=== PATIENT | female | born 2000 | race Caucasian/White ===

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

== ENCOUNTER 2021-01-02 09:08 | Emergency (ER) | payer MEDICAID, OTHER ==
[2021-01-02] MEDS ORDERED: Augmentin 875-125 Tablet PO ONE (09:20)
[2021-01-02] MEDS ORDERED: DECADRON 10MG INJ. IM ONE (09:20)
[2021-01-02] MEDS ORDERED: Augmentin 875-125 Tablet ONE (09:24)
[2021-01-02] MEDS ORDERED: DECADRON 10MG INJ. ONE (09:24)
--- NOTE | 2021-01-02 09:26 | ERPHSYRPT ---
- History of Present Illness Time Seen by Provider: 01/02/21 09:10 Source: patient Exam Limitations: no limitations Patient Subjective Stated Complaint: PT states "I think I have strep, my throat started to hurt last night and now it si swollen with white spots on it." Triage Nursing Assessment: Pt presented alert and oriented X 3, skin pwd Pt ambulates with an upright steady gait, able to speak in clear full sentences pt in no apparent respiratory distress. Pt throat swollen and white. Physician History: 40 years old female presented in the ER with chief complaint of sore throat worsening since last night and this morning noticed white patches with diffuse swelling of both tonsils and uvula making it difficult to swallow solids but no difficulty swallowing liquids. Denies fever chills cough or shortness of b reath. Does have history of tonsillitis in the past. Complaining of dull aching moderate intensity pain which is more with swallowing. Timing/Duration: gradual onset, yesterday Severity: moderate ENT Location: throat Prearrival Treatment: no prearrival treatment Associated Symptoms: poor solids intake, sore throat, difficulty swallowing, No fever, No facial pain/swelling Allergies/Adverse Reactions: No Known Drug Allergies Allergy (Verified 01/02/21 09:16) Hx Tetanus, Diphtheria Vaccination/Date Given: No Hx Influenza Vaccination/Date Given: No Hx Pneumococcal Vaccination/Date Given: No Immunizations Up to Date: Yes Travel Risk - International Travel Have you traveled outside of the country in past 3 weeks: No - Coronavirus Screening Are you exhibiting any of the following symptoms?: No Close contact with a COVID-19 positive Pt in past 14-21 Days: No - Vaccine Status Have you recieved a Covid-19 vaccination: No - Review of Systems Constitutional: No Symptoms Eyes: No Symptoms Ears, Nose, & Throat: Throat Pain, Throat Swelling, Painful Swallowing Respiratory: No Symptoms Cardiac: No Symptoms Abdominal/Gastrointestinal: No Symptoms Genitourinary Symptoms: No Symptoms Musculoskeletal: No Symptoms Skin: No Symptoms Neurological: No Symptoms Psychological: No Symptoms Endocrine: No Symptoms Hematologic/Lymphatic: No Symptoms Immunological/Allergic: No Symptoms - Past Medical History Pertinent Past Medical History: No - Past Surgical History Past Surgical History: No - Social History Smoking Status: Never smoker How long have you smoked: 1 year Exposure to second hand smoke: Yes Drug Use: none Patient Lives Alone: No - Female History Hx Last Menstrual Period: 12/17/2020 Hx Now: No - Nursing Vital Signs Nursing Vital Signs: Initial Vital Signs Temperature 97.2 F 01/02/21 09:11 Pulse Rate 112 H 01/02/21 09:11 Respiratory Rate 20 01/02/21 09:11 Blood Pressure 141/88 01/02/21 09:11 O2 Sat by Pulse Oximetry 97 01/02/21 09:11 Pain Scale Pain Intensity 6 - Physical Exam General Appearance: no apparent distress Eye Exam: bilateral eye: normal inspection, PERRL, EOMI Ear Exam: bilateral ear: auricle normal, canal normal, TM normal Nasal Exam: normal inspection Throat Exam: tonsillar exudate, tonsillar swelling, uvula swelling, No tongue swollen Neck Exam: normal inspection, non-tender, full range of motion, lymphadenopathy (R), lymphadenopathy (L) Cardiovascular/Respiratory Exam: normal breath sounds, regular rate/rhythm Abdominal Exam: non-tender, soft, no organomegaly Neurologic Exam: alert, oriented x 3, cooperative, costume mistress II-XII nml as tested Skin Exam: normal color SpO2 Interpretation: normal SpO2: 97 O2 Delivery: Room Air Ordered Tests: Medication Summary Discontinued Medications Generic Name Dose Route Start Last Admin Trade Name Radamesq PRN Reason Stop Dose Admin Amoxicillin/Clavulanate Potassium 875 mg 01/02/21 09:20 01/02/21 09:26 Augmentin 875-125 Tablet PO 01/02/21 09:21 875 mg STAT ONE Administration Amoxicillin/Clavulanate Potassium Confirm 01/02/21 09:24 Augmentin 875-125 Tablet Administered 01/02/21 09:25 Dose 875 mg .ROUTE .STK-MED ONE Dexamethasone Sodium Phosphate 10 mg 01/02/21 09:20 01/02/21 09:26 Decadron 10mg Inj. IM 01/02/21 09:21 10 mg STAT ONE Administration Dexamethasone Sodium Phosphate Confirm 01/02/21 09:24 Decadron 10mg Inj. Administered 01/02/21 09:25 Dose 10 mg .ROUTE .STK-MED ONE Lab/Rad Data: Laboratory Results 01/02/21 Range/Units 09:25 Group A Strep Antibody DETECTED (NEGATIVE) - Progress Progress Note: Patient has bilateral enlarged tonsils with swelling of the uvula. She is given a dose of Decadron along with Augmentin. Strep throat is obtained. Recommended outpatient follow-up. Counseled pt/family regarding: lab results, diagnosis, need for follow-up - Departure Departure Disposition: Home Clinical Impression: Acute pharyngitis Qualifiers: Pharyngitis/tonsillitis etiology: streptococcus Qualified Code(s): J02.0 - Streptococcal pharyngitis Condition: Stable Critical Care Time: No Referrals: ALPHONSE COTTER MD [ACTIVE STAFF] - (1-2 days for reevaluation) Instructions: Strep Throat (DC) Additional Instructions: Do warm salt water gargles. Take Tylenol/ibuprofen as needed for pain. Follow- up with primary care for reevaluation and may need ENT referral for possible removal of tonsils. Return to ER for difficulty breathing, persistent lorrie n/increasing swelling/fever chills etc. Prescriptions: Amoxicillin/Potassium Clav [Augmentin 875-125 Tablet] 875 mg PO BID 10 Days #20 tablet
[2021-01-02 10:06] VITALS: BP 134/80; PULSE 110; O2SAT 98
== END 2021-01-02 10:11 | disposition home or self-care (01) ==
LOC: ED 09:08
DX: J02.0 Streptococcal pharyngitis (principal)
CPT/HCPCS: 87651; 96372; 99284; J1100; A9270-GY

== ENCOUNTER 2021-02-20 07:39 | Emergency (ER) | payer MEDICAID ==
[2021-02-20] MEDS ORDERED: TORAdol 30 mg Injection IM ONE (08:14)
[2021-02-20] MEDS ORDERED: Sodium Chloride 0.9% 1000 ML 1,000 ML IV STA (08:17)
[2021-02-20] MEDS ORDERED: TORAdol 30 mg Injection ONE (08:20)
[2021-02-20] MEDS ORDERED: Sodium Chloride 0.9% 1000 ML 1,000 ML ONE (08:20)
[2021-02-20 08:24] LABS: Hematocrit 33.3 % (35-47); Hemoglobin 9.8 gm/dl (12.0-16.0); Mean Corpuscular Hemoglobin 21.5 pg (26-32); Mean Corpuscular Hgb Concent. 29.4 g/dl (32-36); Mean Platelet Volume 10.7 fl (7.5-11.0); Platelet Count 302 K/mm3 (150-450); Red Blood Count 4.56 M/mm3 (4.1-5.4); Red Cell Distribution Width 18.7 % (11.5-14.0)
[2021-02-20 08:33] LABS: Appearance CLOUDY (CLEAR); Bilirubin NEGATIVE (NEGATIVE); Blood NEGATIVE Ery/ul (0-5); Epithelial Cells PACKED /HPF (FEW); Glucose NEGATIVE (NEGATIVE); Ketones NEGATIVE (NEGATIVE); Leukocyte Esterase NEGATIVE (NEGATIVE); Mucus SLIGHT /HPF (NEGATIVE); Nitrite NEGATIVE (NEGATIVE); Protein,Urine Dip 30 (Negative); RBC 0-2 /HPF (0-2); Specific Gravity 1.024 (1.005-1.025); Urobilinogen NEGATIVE mg/dL (0-1)
[2021-02-20 08:34] LABS: Bacteria NONE SEEN /HPF (NEGATIVE)
--- NOTE | 2021-02-20 08:37 | ERPHSYRPT ---
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 Recent Rapid test for COVID 1 week ago. Although she has some Positive contact Timing/Duration: yesterday Severity: moderate Associated Symptoms: nausea, vomiting, abdominal pain, cough, headaches Allergies/Adverse Reactions: No Known Drug Allergies Allergy (Verified 02/20/21 07:57) Hx Tetanus, Diphtheria Vaccination/Date Given: No Hx Influenza Vaccination/Date Given: No Hx Pneumococcal Vaccination/Date Given: No Travel Risk - International Travel Have you traveled outside of the country in past 3 weeks: No - Coronavirus Screening Are you exhibiting any of the following symptoms?: Yes Symptoms: Cough: New Onset, Vomiting/Diarrhea, Headaches/Body Aches/Fatigue - Vaccine Status Have you recieved a Covid-19 vaccination: No - Review of Systems Constitutional: Malaise, No Fever, No Chills Eyes: No Symptoms Ears, Nose, & Throat: No Symptoms Respiratory: Cough, No Dyspnea Cardiac: No Chest Pain, No Edema, No Syncope Abdominal/Gastrointestinal: Nausea, Vomiting, No Abdominal Pain, No Diarrhea Genitourinary Symptoms: No Dysuria Musculoskeletal: No Back Pain, No Neck Pain Skin: No Rash Neurological: Headache, No Dizziness, No Focal Weakness, No Sensory Changes Psychological: No Symptoms Endocrine: No Symptoms All Other Systems: Reviewed and Negative - Past Medical History Pertinent Past Medical History: No - Past Surgical History Past Surgical History: No - Social History Smoking Status: Never smoker How long have you smoked: 1 year Exposure to second hand smoke: Yes Drug Use: none Patient Lives Alone: No - Female History Hx Last Menstrual Period: 01/21/2021 Hx Now: No - Nursing Vital Signs Nursing Vital Signs: Initial Vital Signs Temperature 97.9 F 02/20/21 07:45 Pulse Rate 119 H 02/20/21 07:45 Blood Pressure 119/85 02/20/21 07:45 O2 Sat by Pulse Oximetry 97 02/20/21 07:45 Pain Scale Pain Intensity 10 - Physical Exam General Appearance: no apparent distress, alert Eye Exam: PERRL/EOMI, eyes nml inspection Ears, Nose, Throat Exam: normal ENT inspection, TMs normal, pharynx normal, moist mucous membranes Neck Exam: normal inspection, non-tender, supple, full range of motion Respiratory Exam: normal breath sounds, lungs clear, No respiratory distress Cardiovascular Exam: regular rate/rhythm, normal heart sounds, normal peripheral pulses Gastrointestinal/Abdomen Exam: soft, normal bowel sounds, No tenderness, No mass Back Exam: normal inspection, normal range of motion, No CVA tenderness, No becky tebral tenderness Extremity Exam: normal inspection, normal range of motion, pelvis stable Neurologic Exam: alert, oriented x 3, cooperative, normal mood/affect, nml cerebellar function, nml station & gait, sensation nml, No motor deficits Skin Exam: normal color, warm, dry, No rash Lymphatic Exam: No adenopathy SpO2: 97 - Course Nursing assessment & vital signs reviewed: Yes - Radiology Exams Chest X-ray Interpretation: Reviewed by me, Negative Ordered Tests: Active Orders 24 hr Category Date Time Status Isolation, Initiate & Maintain STAT Care 02/20/21 08:12 Active CHEST 2 VIEWS (PA AND LAT) Stat Exams 02/20/21 08:13 Taken CBC Stat Lab 02/20/21 08:10 Completed CMP Stat Lab 02/20/21 08:10 Completed CULTURE,URINE Stat Lab 02/20/21 08:17 Received D-DIMER QUANTITATIVE Stat Lab 02/20/21 08:10 Completed HCG,QUALITATIVE URINE Stat Lab 02/20/21 08:38 Completed UA W/RFX UR CULTURE Stat Lab 02/20/21 08:17 Completed Medication Summary Generic Name Dose Route Start Last Admin Trade Name Freq PRN Reason Stop Dose Admin Ceftriaxone Sodium/Dextrose 1 g in 50 mls @ 100 mls/hr 02/20/21 09:15 02/20/21 09:34 Rocephin 1 Gm-D5w 50 Ml Bag IV 02/20/21 09:44 Infused STAT STA Infusion Discontinued Medications Generic Name Dose Route Start Last Admin Trade Name [place] PRN Reason Stop Dose Admin Sodium Chloride 1,000 mls @ 999 mls/hr 02/20/21 08:17 02/20/21 09:33 Sodium Chloride 0.9% 1000 Ml IV 02/20/21 09:17 Infused .Q1H1M STA Infusion Sodium Chloride Confirm 02/20/21 08:20 Sodium Chloride 0.9% 1000 Ml Administered 02/20/21 08:21 Dose 1,000 mls @ ud .ROUTE .STK-MED ONE Ceftriaxone Sodium/Dextrose Confirm 02/20/21 09:16 Rocephin 1 Gm-D5w 50 Ml Bag Administered 02/20/21 09:17 Dose 1 g in 50 mls @ ud IV .STK-MED ONE Ketorolac Tromethamine 60 mg 02/20/21 08:14 02/20/21 08:23 Toradol 30 Mg Injection IM 02/20/21 08:15 30 mg STAT ONE Administration Ketorolac Tromethamine Confirm 02/20/21 08:20 Toradol 30 Mg Injection Administered 02/20/21 08:21 Dose 30 mg .ROUTE .STK-MED ONE Lab/Rad Data: Laboratory Result Diagrams 02/20/21 08:10 02/20/21 08:10 Laboratory Results 02/20/21 02/20/21 02/20/21 Range/Units 08:38 08:17 08:10 WBC (4.0-10.5) K/mm3 RBC (4.1-5.4) M/mm3 Hgb (12.0-16.0) gm/dl Hct (35-47) % MCV (78-100) fl MCH (26-32) pg MCHC (32-36) g/dl RDW (11.5-14.0) % Plt Count (150-450) K/mm3 MPV (7.5-11.0) fl D-Dimer 721 H* (215-500) ng/mL Sodium (137-145) mmol/L Potassium (3.5-5.1) mmol/L Chloride (98-107) mmol/L Carbon Dioxide (22-30) mmol/L Anion Gap (5-15) MEQ/L BUN (7-17) mg/dL Creatinine (0.52-1.04) mg/dL Estimated GFR ML/MIN Glucose (74-106) mg/dL Calcium (8.4-10.2) mg/dL Total Bilirubin (0.2-1.3) mg/dL AST (14-36) U/L ALT (0-35) U/L Alkaline Phosphatase (38-126) U/L Serum Total Protein (6.3-8.2) g/dL Albumin (3.5-5.0) g/dL Urine Color SABINE (YELLOW) Urine Appearance CLOUDY (CLEAR) Urine pH 5.0 (5-6) Ur Specific [place] 1.024 (1.005-1.025) Urine Protein 30 (Negative) Urine Ketones NEGATIVE (NEGATIVE) Urine Blood NEGATIVE (0-5) Hussein/ul Urine Nitrite NEGATIVE (NEGATIVE) Urine Bilirubin NEGATIVE (NEGATIVE) Urine Urobilinogen NEGATIVE (0-1) mg/dL Ur Leukocyte Esterase NEGATIVE (NEGATIVE) Urine WBC (Auto) 6-10 (0-5) /HPF Urine RBC (Auto) 0-2 (0-2) /HPF U Epithel Cells (Auto) PACKED (FEW) /HPF Urine Bacteria (Auto) NONE SEEN (NEGATIVE) /HPF Urine Mucus (Auto) SLIGHT (NEGATIVE) /HPF Urine Culture Reflexed YES (NO) Urine Glucose NEGATIVE (NEGATIVE) mg/dL Urine HCG, Qual NEGATIVE (Negative) 02/20/21 02/20/21 Range/Units 08:10 08:10 WBC 4.0 (4.0-10.5) K/mm3 RBC 4.56 (4.1-5.4) M/mm3 Hgb 9.8 L (12.0-16.0) gm/dl Hct 33.3 L (35-47) % MCV 73.0 L (78-100) fl MCH 21.5 L (26-32) pg MCHC 29.4 L (32-36) g/dl RDW 18.7 H (11.5-14.0) % Plt Count 302 (150-450) K/mm3 MPV 10.7 (7.5-11.0) fl D-Dimer (215-500) ng/mL Sodium 138 (137-145) mmol/L Potassium 3.9 (3.5-5.1) mmol/L Chloride 104 (98-107) mmol/L Carbon Dioxide 25 (22-30) mmol/L Anion Gap 13.6 (5-15) MEQ/L BUN 9 (7-17) mg/dL Creatinine 0.83 (0.52-1.04) mg/dL Estimated GFR > 60.0 ML/MIN Glucose 111 H (74-106) mg/dL Calcium 8.8 (8.4-10.2) mg/dL Total Bilirubin 0.20 (0.2-1.3) mg/dL AST 27 (14-36) U/L ALT 23 (0-35) U/L Alkaline Phosphatase 53 (38-126) U/L Serum Total Protein 7.4 (6.3-8.2) g/dL Albumin 4.0 (3.5-5.0) g/dL Urine Color (YELLOW) Urine Appearance (CLEAR) Urine pH (5-6) Ur Specific [place] (1.005-1.025) Urine Protein (Negative) Urine Ketones (NEGATIVE) Urine Blood (0-5) Hussein/ul Urine Nitrite (NEGATIVE) Urine Bilirubin (NEGATIVE) Urine Urobilinogen (0-1) mg/dL Ur Leukocyte Esterase (NEGATIVE) Urine WBC (Auto) (0-5) /HPF Urine RBC (Auto) (0-2) /HPF U Epithel Cells (Auto) (FEW) /HPF Urine Bacteria (Auto) (NEGATIVE) /HPF Urine Mucus (Auto) (NEGATIVE) /HPF Urine Culture Reflexed (NO) Urine Glucose (NEGATIVE) mg/dL Urine HCG, Qual (Negative) - Progress Progress: unchanged Counseled pt/family regarding: lab results, diagnosis, need for follow-up, rad results - Departure Departure Disposition: Home Clinical Impression: COVID-19 virus infection UTI (urinary tract infection) Qualifiers: Urinary tract infection type: site unspecified Hematuria presence: without hematuria Qualified Code(s): N39.0 - Urinary tract infection, site not specified Anemia Qualifiers: Anemia type: iron deficiency Iron deficiency anemia type: chronic blood loss Qualified Code(s): D50.0 - Iron deficiency anemia secondary to blood loss (chronic) Condition: Stable Critical Care Time: Yes Critical Care Time(excluding separately billable procedures): Critical 30-74 mins Referrals: DOCTOR,NO FAMILY [Primary Care Provider] - STACEY ARELLANO [ACTIVE STAFF] - Follow Up with PCP/3 days Instructions: Anemia Caused by Low Iron, Adult (DC), Urinary Tract Infection, Adult (DC), Headache, Adult (DC), Coronavirus Disease 2019 (COVID-19) (DC) Additional Instructions: Discharge/Care Plan KAREL BLACK was seen on 02/20/21 in the Emergency Room. The patient was counseled regarding Diagnosis,Lab results, Imaging studies, need for follow up and when to return to the Emergency Room. Prescriptions given: Discharge Note I have spoken with the patient and/or caregivers. I have explained the patient's condition, diagnosis and treatment plan based on the information available to me at this time. I have answered the patient's and/or caregiver's questions and addressed any concerns. The patient and/or caregivers have as good understanding of the patient's diagnosis, condition and treatment plan as can be expected at this point. The vital signs have been stable. The patient's condition is stable and appropriate for discharge from the emergency department. The patient will pursue further outpatient evaluation with the primary care physician or other designated or consulting physician as outlined in the discharge instructions. The patient and/or caregivers are agreeable to this plan of care and follow-up instructions have been explained in detail. The patient and/or caregivers have received these instruction. The patient/and or caregivers are aware that any significant change in condition or worsening of symptoms should prompt an immediate return to this or the closest emergency department or call 911. KAREL BLACK was seen on 02/20/21 n the Emergency Room. At that time you were treated for an emergent condition, during your visit Laboratory, Radiology and/or other procedures may have been ordered. It is very important that you follow-up with your Primary Care Physician NO FAMILY DOCTOR within the next 24- 48 hours to review your Emergency Room visit and the final results of testing that was ordered. Some test results such as Urine Cultures, Blood Cultures, and other cultures if ordered will not be finalized for 24-48 hours. If you do not have a Primary Care Provider please call the medical records department at [phone] ext [phone] to obtain a copy of your results or you may sign into our patient portal to obtain these results by visiting us @ [email or web address] and completing the following steps: 1. Click on the Patient Portal link 2. Click the Patient Self Enrollment Link to complete the enrollment form and entering your 3. Once the enrollment form is completed you will receive an email with a temporary ID and password at the email address you provided. 4. Next choose a user name and password. Your user name must be at least 4 characters long and your password must be at least 4 characters long. 5. Choose a security question from the list and provide your answer to the question. If you already have signed into the Health Portal you may access your Health Care Information 15/01 by the following steps: 1. Login to our website @ [email or web address] 2. Enter your original user name and password. FAQS The [facility] Health Portal is an online tool that contains your Lab Results, Radiology Reports, Visit History, Discharge Instructions and Health Summary Lab and Radiology Results will not be available for 72 hours on the portal. The Portal is a secure site, passwords are encryted and URLs are re-written so they cannot be copied and pasted. You and authorized family members are the only ones who can access your Portal. Also there is a timeout feature that protects your information if you leave the Portal page open. If you have technical difficulty please use the Contact Us link on the page this will allow you to submit any questions you have regarding the Portal or you may contact the Medical Record Department at [phone]. Forms: Work/School Release Form Prescriptions: Azithromycin [Zithromax] 250 mg PO UD 5 Days #6 tablet
[2021-02-20 08:41] LABS: ALKALINE PHOSPHATASE 53 U/L (38-126); ANION GAP 13.6 MEQ/L (5-15); BLOOD UREA NITROGEN 9 mg/dL (7-17); CHLORIDE 104 mmol/L (98-107); Calcium 8.8 mg/dL (8.4-10.2); Carbon Dioxide 25 mmol/L (22-30); Creatinine 1 0.83 mg/dL (0.52-1.04); EST GLOMERULAR FILTRATION RATE > 60.0 ML/MIN; Glucose 111 mg/dL (74-106); Potassium 3.9 mmol/L (3.5-5.1); SGOT/AST 27 U/L (14-36); SGPT/ALT 23 U/L (0-35); SODIUM 138 mmol/L (137-145); Total Protein 7.4 g/dL (6.3-8.2)
[2021-02-20 09:13] VITALS: BP 132/69; PULSE 105
[2021-02-20 09:14] VITALS: O2SAT 97
[2021-02-20] MEDS ORDERED: ROCEPHIN 1 Gm-D5w 50 ml Bag** 1 G/50 ML IVPB IV STA (09:15)
[2021-02-20] MEDS ORDERED: ROCEPHIN 1 Gm-D5w 50 ml Bag** 1 G/50 ML IVPB IV ONE (09:16)
--- NOTE | 2021-02-20 18:35 | XRAY ---
Indication: Cough. Suspect covid 19. Comparison: None PA/lateral chest demonstrates normal heart, lungs, and bony thorax.
== END 2021-02-20 10:03 | disposition home or self-care (01) ==
LOC: ED 07:39
DX: U07.1 COVID-19 (principal); N39.0 Urinary tract infection, site not specified; D50.0 Iron deficiency anemia secondary to blood loss (chronic); R05 Cough; R07.9 Chest pain, unspecified; R53.83 Other fatigue
CPT/HCPCS: 36415; 71046; 80053; 81001; 84703; 85027; 85379; 87086; 96360; 96365; 96372; 99284; 99291; U0003; J0696; J1885

== ENCOUNTER 2021-11-24 21:15 | Observation (INO) | payer OTHER ==
[2021-11-24 22:16] LABS: Appearance CLEAR (CLEAR); Bilirubin SMALL (NEGATIVE); Glucose NEGATIVE (NEGATIVE); Ketones SMALL-15 (NEGATIVE); Protein,Urine Dip 30 (Negative); RBC NEGATIVE Ery/ul (0-5); Specific Gravity >=1.030 (1.005-1.025)
[2021-11-24 22:17] LABS: Dipstick done @ ? MAIN LAB; Nitrite NEGATIVE (NEGATIVE); Urobilinogen 0.2 mg/dL (0-1)
[2021-11-24 22:21] LABS: Epithelial Cells MANY /HPF (FEW); Mucus SLIGHT /HPF (NEGATIVE)
[2021-11-24 22:25] LABS: Urine Cultured Indicated? YES
[2021-11-24 22:35] LABS: Amphetamine,Urine NEGATIVE (NEGATIVE); Barbiturate,Urine NEGATIVE (NEGATIVE); Benzodiazepine,Urine NEGATIVE (NEGATIVE); Cocaine,Urine NEGATIVE (NEGATIVE); Methadone,Urine NEGATIVE (NEGATIVE); Opiate,Urine NEGATIVE (NEGATIVE); PCP,Urine NEGATIVE (NEGATIVE); THC,Urine NEGATIVE (NEGATIVE)
[2021-11-24 23:07] LABS: INFLUENZA B NEGATIVE (NEGATIVE); RESPIRATORY SYNCTIAL VIRUS NEGATIVE (Negative); SARS-CoV-2 Xpert Express NEGATIVE (NEGATIVE)
[2021-11-24 23:14] LABS: INFLUENZA A POSITIVE (NEGATIVE)
[2021-11-24 23:52] VITALS: BP 145/86; PULSE 115; O2SAT 100
== END 2021-11-24 23:25 | disposition home or self-care (01) ==
LOC: UNDOADMOB 21:15 → MED SURG 21:15 → UNDODISOB 23:25
PROVIDERS: ADMIT Family Medicine; ATTEND Family Medicine
DX: Z34.03 Encounter for supervision of normal first pregnancy, third trimester (principal); Z3A.31 31 weeks gestation of pregnancy; Z20.828 Contact with and (suspected) exposure to other viral communicable diseases
CPT/HCPCS: 0241U; 80307; 81015; 87086; G0378

== ENCOUNTER 2023-01-07 23:55 | Emergency (ER) | payer OTHER ==
[2023-01-08] MEDS ORDERED: PROTONIX 40 MG IV IV ONE ×2 (00:31→00:55)
[2023-01-08] MEDS ORDERED: Zofran 4 MG/2 ML VIAL IV ONE (00:31)
[2023-01-08] MEDS ORDERED: Sodium Chloride 0.9% 1000 ML 1,000 ML IV STA (00:31)
--- NOTE | 2023-01-08 00:39 | ERPHSYRPT ---
- History of Present Illness Time Seen by Provider: 01/08/23 00:04 Historian: patient Exam Limitations: no limitations Physician History: 22 years old healthy female presented in the ER with chief complaint of blood in stool. Patient reports she started to have cramping/dull aching pain in the epigastric/left side around noon time yesterday with urge to have a bowel m ovement and later started loose stool initially mixed with blood and then bright red blood. This happened 4 times in total. Denies any abdominal pain/cramping currently. Does not take any NSAIDs or blood thinners. No history of blood dyscrasias. No history of hemorrhoids or IBD's. No previous history of GI bleed. Has nausea but no vomiting. Timing/Duration: hour(s) (12), intermittent, gradual onset, worse Activities at Onset: rest Quality: cramping Abdominal Pain Onset Location: LUQ, LLQ Severity of Pain-Max: moderate Severity of Pain-Current: mild Modifying Factors: Improves With: nothing Associated Symptoms: nausea Previous symptoms: no prior history Allergies/Adverse Reactions: No Known Drug Allergies Allergy (Verified 01/08/23 00:39) Hx Tetanus, Diphtheria Vaccination/Date Given: No Hx Influenza Vaccination/Date Given: No Hx Pneumococcal Vaccination/Date Given: No Travel Risk - Vaccine Status Have you recieved a Covid-19 vaccination: Yes [employer]: Moderna - Vaccination Dates Date of 2cond Vaccination (if applicable): 06/2021 - Review of Systems Constitutional: No Symptoms Eyes: No Symptoms Ears, Nose, & Throat: No Symptoms Respiratory: No Symptoms Cardiac: No Symptoms Abdominal/Gastrointestinal: Abdominal Pain, Diarrhea, Hematochezia Genitourinary Symptoms: No Symptoms Musculoskeletal: No Symptoms Skin: No Symptoms Neurological: No Symptoms Psychological: No Symptoms Endocrine: No Symptoms Hematologic/Lymphatic: No Symptoms - Past Medical History Pertinent Past Medical History: No - Past Surgical History Past Surgical History: No - Social History Smoking Status: Never smoker How long have you smoked: 1 year Exposure to second hand smoke: Yes Drug Use: none Patient Lives Alone: No - Nursing Vital Signs Nursing Vital Signs: Initial Vital Signs Temperature 96.9 F 01/08/23 00:26 Pulse Rate 106 H 01/08/23 00:26 Respiratory Rate 22 01/08/23 00:26 Blood Pressure 168/100 01/08/23 00:26 O2 Sat by Pulse Oximetry 98 01/08/23 00:26 Pain Scale Pain Intensity 0 - Physical Exam General Appearance: no apparent distress, alert Eye Exam: PERRL/EOMI Ears, Nose, Throat Exam: normal ENT inspection Neck Exam: normal inspection, supple, full range of motion Respiratory Exam: normal breath sounds, lungs clear Cardiovascular Exam: regular rate/rhythm, normal heart sounds Gastrointestinal/Abdomen Exam: soft, normal bowel sounds, No tenderness Back Exam: normal inspection, normal range of motion Extremity Exam: normal inspection, normal range of motion Neurologic Exam: alert, oriented x 3, cooperative Skin Exam: normal color SpO2 Interpretation: normal SpO2: 98 O2 Delivery: Room Air Ordered Tests: Medication Summary Discontinued Medications Generic Name Dose Route Start Last Admin Trade Name Freq PRN Reason Stop Dose Admin Amoxicillin/Clavulanate Potassium 875 mg 01/08/23 04:16 01/08/23 04:18 Amox Tr/Potassium Clavulanate 875 Mg Tablet PO 01/08/23 04:17 875 mg STAT ONE Administration Amoxicillin/Clavulanate Potassium Confirm 01/08/23 04:18 Amox Tr/Potassium Clavulanate 875 Mg Tablet Administered 01/08/23 04:19 Dose 875 mg .ROUTE .STK-MED ONE Sodium Chloride 1,000 mls @ 999 mls/hr 01/08/23 00:31 01/08/23 02:10 Sodium Chloride 0.9% 1000 Ml IV 01/08/23 01:31 Infused .Q1H1M STA Infusion Sodium Chloride Confirm 01/08/23 00:55 Sodium Chloride 0.9% 1000 Ml Administered 01/08/23 00:56 Dose 1,000 mls @ ud .ROUTE .STK-MED ONE Ondansetron HCl 4 mg 01/08/23 00:31 01/08/23 00:59 Ondansetron Hcl 4 Mg/2 Ml Vial IV 01/08/23 00:32 4 mg STAT ONE Administration Ondansetron HCl Confirm 01/08/23 00:55 Ondansetron Hcl 4 Mg/2 Ml Vial Administered 01/08/23 00:56 Dose 4 mg .ROUTE .STK-MED ONE Pantoprazole Sodium 40 mg 01/08/23 00:31 01/08/23 00:59 Pantoprazole 40 Mg Vial IV 01/08/23 00:32 40 mg STAT ONE Administration Pantoprazole Sodium Confirm 01/08/23 00:55 Pantoprazole 40 Mg Vial Administered 01/08/23 00:56 Dose 40 mg IV .[facility]-MED ONE Lab/Rad Data: Laboratory Result Diagrams 01/08/23 00:44 01/08/23 00:44 Laboratory Results 01/08/23 01/08/23 01/08/23 Range/Units 00:44 00:44 00:44 WBC (4.0-10.5) x10^3/uL RBC (4.1-5.4) x10^6/uL Hgb (12.0-16.0) g/dL Hct (35-47) % MCV (78-100) fL MCH (26-32) pg MCHC (32-36) g/dL RDW (11.5-14.0) % Plt Count (150-450) x10^3/uL MPV (7.5-11.0) fL Gran % (36.0-66.0) % Immature Gran % (Auto) (0.00-0.4) % Nucleat RBC Rel Count (0.00-0.1) % Eos # (Auto) (0-0.5) x10^3/uL Immature Gran # (Auto) (0.00-0.03) x10^3u/L Absolute Lymphs (auto) (1.0-4.6) x10^3/uL Absolute Monos (auto) (0.0-1.3) x10^3/uL Absolute Nucleated RBC (0.00-0.01) x10^3u/L Lymphocytes % (24.0-44.0) % Monocytes % (0.0-12.0) % Eosinophils % (0.00-5.0) % Basophils % (0.0-0.4) % Absolute Granulocytes (1.4-6.9) x10^3/uL Basophils # (0-0.4) x10^3/uL PT 10.3 (9.4-12.5) SECONDS INR 0.94 (0.8-3.0) APTT 25.7 (25.1-36.5) SECONDS Sodium 139 (137-145) mmol/L Potassium 4.2 (3.5-5.1) mmol/L Chloride 103 (98-107) mmol/L Carbon Dioxide 27 (22-30) mmol/L Anion Gap 12.9 (5-15) MEQ/L BUN 11 (7-17) mg/dL Creatinine 0.70 (0.52-1.04) mg/dL Estimated GFR > 60.0 ML/MIN Glucose 112 H (74-106) mg/dL Calcium 9.0 (8.4-10.2) mg/dL Total Bilirubin 0.20 (0.2-1.3) mg/dL AST 27 (14-36) U/L ALT 23 (0-35) U/L Alkaline Phosphatase 60 (38-126) U/L Serum Total Protein 7.8 (6.3-8.2) g/dL Albumin 4.0 (3.5-5.0) g/dL Serum HCG, Qual NEGATIVE (NEGATIVE) Urine Color (Yellow) Urine Appearance (Clear) Urine pH (4.6-8.0) Ur Specific [place] (1.005-1.030) Urine Protein (Negative) Urine Glucose (UA) (Negative) mg/dL Urine Ketones (Negative) Urine Blood (Negative) Urine Nitrite (Negative) Urine Bilirubin (Negative) Urine Urobilinogen (0.2) mg/dL Ur Leukocyte Esterase (Negative) U Hyaline Cast (Auto) (0-2) /LPF Urine Microscopic RBC (0-5) /HPF Urine Microscopic WBC (0-5) /HPF Ur Epithelial Cells (None Seen) /HPF Urine Bacteria (None Seen) /HPF Urine Culture Reflexed (NO) Slides for Path Review 01/08/23 01/08/23 Range/Units 00:44 00:44 WBC 8.6 (4.0-10.5) x10^3/uL RBC 4.79 (4.1-5.4) x10^6/uL Hgb 10.0 L (12.0-16.0) g/dL Hct 34.9 L (35-47) % MCV 72.9 L (78-100) fL MCH 20.9 L (26-32) pg MCHC 28.7 L (32-36) g/dL RDW 17.9 H (11.5-14.0) % Plt Count 329 (150-450) x10^3/uL MPV 10.0 (7.5-11.0) fL Gran % 67.7 H (36.0-66.0) % Immature Gran % (Auto) 0.3 (0.00-0.4) % Nucleat RBC Rel Count 0.0 (0.00-0.1) % Eos # (Auto) 0.25 (0-0.5) x10^3/uL Immature Gran # (Auto) 0.03 (0.00-0.03) x10^3u/L Absolute Lymphs (auto) 2.01 (1.0-4.6) x10^3/uL Absolute Monos (auto) 0.44 (0.0-1.3) x10^3/uL Absolute Nucleated RBC 0.00 (0.00-0.01) x10^3u/L Lymphocytes % 23.4 L (24.0-44.0) % Monocytes % 5.1 (0.0-12.0) % Eosinophils % 2.9 (0.00-5.0) % Basophils % 0.6 (0.0-0.4) % Absolute Granulocytes 5.80 (1.4-6.9) x10^3/uL Basophils # 0.05 (0-0.4) x10^3/uL PT (9.4-12.5) SECONDS INR (0.8-3.0) APTT (25.1-36.5) SECONDS Sodium (137-145) mmol/L Potassium (3.5-5.1) mmol/L Chloride (98-107) mmol/L Carbon Dioxide (22-30) mmol/L Anion Gap (5-15) MEQ/L BUN (7-17) mg/dL Creatinine (0.52-1.04) mg/dL Estimated GFR ML/MIN Glucose (74-106) mg/dL Calcium (8.4-10.2) mg/dL Total Bilirubin (0.2-1.3) mg/dL AST (14-36) U/L ALT (0-35) U/L Alkaline Phosphatase (38-126) U/L Serum Total Protein (6.3-8.2) g/dL Albumin (3.5-5.0) g/dL Serum HCG, Qual (NEGATIVE) Urine Color Yellow (Yellow) Urine Appearance Cloudy A (Clear) Urine pH 5.5 (4.6-8.0) Ur Specific [place] >=1.030 A (1.005-1.030) Urine Protein Trace A (Negative) Urine Glucose (UA) Negative (Negative) mg/dL Urine Ketones Trace A (Negative) Urine Blood Moderate A (Negative) Urine Nitrite Negative (Negative) Urine Bilirubin Negative (Negative) Urine Urobilinogen 0.2 (0.2) mg/dL Ur Leukocyte Esterase Negative (Negative) U Hyaline Cast (Auto) NONE SEEN (0-2) /LPF Urine Microscopic RBC 0-2 (0-5) /HPF Urine Microscopic WBC 3-5 (0-5) /HPF Ur Epithelial Cells Many A (None Seen) /HPF Urine Bacteria Rare A (None Seen) /HPF Urine Culture Reflexed NO (NO) Slides for Path Review YES - Progress Progress: improved, re-examined Progress Note: 01/08/23 00:36 22 years old healthy female presented in the ER with chief complaint of blood in stool. Patient reports she started to have cramping/dull aching pain in the epigastric/left side around noon time yesterday with urge to have a bowel movement and later started loose stool initially mixed with blood and then bright red blood. This happened 4 times in total. Denies any abdominal pain/cramping currently. Does not take any NSAIDs or blood thinners. No history of blood dyscrasias. No history of hemorrhoids or IBD's. No previous history of GI bleed. Has nausea but no vomiting. Patient is hemodynamically stable. No abdominal tenderness. Will do gentle h ydration, Protonix and will obtain baseline lab work along with CT abdomen pelvis. 01/08/23 04:10 Patient work-up showed normal white count, hemoglobin of 10.0, patient has chronic anemia with hemoglobin around 10. Chemistries fairly unremarkable. Normal PT APTT. Obtain CT abdomen pelvis with contrast and is negative for colitis or any other acute intra-abdominal pelvic findings. Patient might have internal hemorrhoids versus angiodysplasia versus early developing colitis/diverticulitis, I recommended observation admission for further evaluation and possible colonoscopy to find out the cause of bleeding but patient does not want to stay and sees "I feel better and will follow-up with my primary and set up outpatient appointment". I would give her Augmentin as patient did have some tenderness on the lateral left side. Outpatient follow-up is encouraged with primary care and surgery/GI for colonoscopy. Discussed signs symptoms of worsening bleeding needing return to ER which she seems understanding. Stable for discharge. Counseled pt/family regarding: lab results, diagnosis, need for follow-up, rad results Medical Desision Making - Diagnostic Testing Diagnostic test were ordered, analyzed, and reviewed by me: Yes Radiological Interpretation: Reviewed by me, Teleradiologist Report - Departure Departure Disposition: Home Clinical Impression: Lower GI bleed Condition: Stable Critical Care Time: No Referrals: ERIN MINA NP [Primary Care Provider] - Follow up with PCP 1 day OLINDA HOBSON MD [ACTIVE STAFF] - Follow up/PCP as directed (Call in the morning for appointment for reevaluation and possible colonoscopy.) Instructions: Gastrointestinal Bleeding (DC) Additional Instructions: Drink plenty of fluids to keep yourself well-hydrated. Follow-up with primary care and general surgery for reevaluation and possible colonoscopy. Take Tylenol as needed. Do not take ibuprofen Aleve or any other NSAIDs as they may increase bleeding. Return to ER for worsening bleeding/abdominal pain/feeling dizzy lightheaded, chest pain palpitations or shortness of breath or if develop fever chills etc. Prescriptions: Amox Tr/Potass Clav. 875 mg [Augmentin 875-125 Tablet] 875 mg PO BID #14 tablet
[2023-01-08] MEDS ORDERED: Sodium Chloride 0.9% 1000 ML 1,000 ML ONE (00:55)
[2023-01-08] MEDS ORDERED: Zofran 4 MG/2 ML VIAL ONE (00:55)
[2023-01-08 00:58] LABS: BASOPHIL % 0.6 % (0.0-0.4); Basophil (Absolute #) 0.05 x10^3/uL (0-0.4); Eosinophil % 2.9 % (0.00-5.0); Eosinophil (Absolute #) 0.25 x10^3/uL (0-0.5); Hematocrit 34.9 % (35-47); IMMATURE GRAN # 0.03 x10^3u/L (0.00-0.03); IMMATURE GRAN % 0.3 % (0.00-0.4); Lymphocyte (Absolute #) 2.01 x10^3/uL (1.0-4.6); Lymphocytes % 23.4 % (24.0-44.0); Mean Cell Volume 72.9 fL (78-100); Mean Corpuscular Hemoglobin 20.9 pg (26-32); Mean Corpuscular Hgb Concent. 28.7 g/dL (32-36); Monocyte (Absolute #) 0.44 x10^3/uL (0.0-1.3); Monocytes % 5.1 % (0.0-12.0); Neutrophil % 67.7 % (36.0-66.0); Platelet Count 329 x10^3/uL (150-450); Red Blood Count 4.79 x10^6/uL (4.1-5.4); Red Cell Distribution Width 17.9 % (11.5-14.0); White Blood Count 8.6 x10^3/uL (4.0-10.5)
[2023-01-08 01:07] LABS: Appearance Cloudy (Clear); Bacteria Rare /HPF (None Seen); Bilirubin Negative (Negative); Blood Moderate (Negative); Epithelial Cells Many /HPF (None Seen); Glucose, Urine Negative (Negative); Hyaline Casts NONE SEEN /LPF (0-2); Ketones Trace (Negative); Leukocyte Esterase Negative (Negative); Nitrite Negative (Negative); Ph 5.5 (4.6-8.0); Protein,Urine Dip Trace (Negative); RBC 0-2 /HPF (0-5); Specific Gravity >=1.030 (1.005-1.030); Urobilinogen 0.2 mg/dL (0.2)
[2023-01-08 01:08] LABS: ADD URINE CULTURE? NO (NO)
[2023-01-08 01:13] LABS: ALKALINE PHOSPHATASE 60 U/L (38-126); ANION GAP 12.9 MEQ/L (5-15); BLOOD UREA NITROGEN 11 mg/dL (7-17); CHLORIDE 103 mmol/L (98-107); Carbon Dioxide 27 mmol/L (22-30); EST GLOMERULAR FILTRATION RATE > 60.0 ML/MIN; Glucose 112 mg/dL (74-106); Potassium 4.2 mmol/L (3.5-5.1); SGOT/AST 27 U/L (14-36); SGPT/ALT 23 U/L (0-35); SODIUM 139 mmol/L (137-145); Total Protein 7.8 g/dL (6.3-8.2)
[2023-01-08 01:14] LABS: INR 0.94 (0.8-3.0); PROTIME 10.3 SECONDS (9.4-12.5); PTT 25.7 SECONDS (25.1-36.5)
[2023-01-08 01:17] LABS: HCG SERUM TEST NEGATIVE (NEGATIVE)
[2023-01-08 02:22] LABS: Slide Review 1 YES
--- NOTE | 2023-01-08 03:20 | XRAY ---
CLINICAL HISTORY:LEFT SIDE PAIN , COLITIS? COMPARISON:None TECHNIQUE:Axial sections of abdomen and pelvis were obtained after administration of intravenous contrast. ;Reformatted coronal and sagittal images were acquired. FINDINGS: Diffuse fatty infiltration of the liver is noted. The liver is enlarged in size measuring approximately 21 cm in the midclavicular line. No definite evidence of intrahepatic biliary dilatation. No discrete focal hepatic lesion. The spleen is mildly enlarged measuring 13.8 cm in craniocaudal dimension. Gallbladder is partially contracted. Pancreas and bilateral adrenal glands appear unremarkable. Both kidneys are normal in size and shape. No renal calculus or obstructive uropathy. The urinary bladder is suboptimally distended. No definite intravesical abnormality. Uterus and bilateral adnexa appear unremarkable. The stomach is normally distended. Visualized large and small bowel loops appear grossly unremarkable. No definite evidence of colitis. No ascites or pneumoperitoneum. A few prominent lymph nodes are identified in the right iliac fossa, the largest measuring approximately 9 mm in short axis. No definite evidence of acute appendicitis. Small fat-containing umbilical hernia. Pelvic and abdominal vasculature appear unremarkable. Heart is normal in size. No pericardial effusion. No significant abnormality in the visualized lung bases. No acute bony abnormality. IMPRESSION: No evidence of colitis. Hepatomegaly with hepatic steatosis. Mild splenomegaly. Few non specific prominent lymph mesenteric nodes in the right iliac fossa. Electronically Signed by: New Galvez MD. (01/08/2023 02:18:20 [employer])
[2023-01-08 04:03] VITALS: BP 124/72; PULSE 95
[2023-01-08 04:15] VITALS: O2SAT 98
[2023-01-08] MEDS ORDERED: Augmentin 875-125 Tablet PO ONE (04:16)
[2023-01-08] MEDS ORDERED: Augmentin 875-125 Tablet ONE (04:18)
== END 2023-01-08 04:30 | disposition home or self-care (01) ==
LOC: ED 23:55
DX: K92.2 Gastrointestinal hemorrhage, unspecified (principal); K92.1 Melena; R10.12 Left upper quadrant pain; R10.32 Left lower quadrant pain
CPT/HCPCS: 36000; 36415; 74177; 80053; 81001; 84703; 85025; 85610; 85730; 96360; 96374; 96375; 99284; J2405; A9270-GY

== ENCOUNTER 2023-02-27 06:48 | Observation (INO) | payer OTHER ==
[2023-02-27] MEDS ORDERED: TYLENOL 325 MG PO STA (07:18)
--- NOTE | 2023-02-27 07:21 | ERPHSYRPT ---
- History of Present Illness Time Seen by Provider: 02/27/23 07:23 Source: patient Exam Limitations: no limitations Patient Subjective Stated Complaint: fever, vomiting x2, sore throat, burning on urination Triage Nursing Assessment: pt ambulated into ER without diff. Pt c/o fever and burning on urination since Sunday. Pt has a swollen gland to left side of neck and has a sore throat. Pt is sweating with droplets on her forehead and cheek. Physician History: Patient is a 22-year-old female presents to our ED with a 2-day history of dysuria. Patient was febrile upon arrival at 101.8. Heart rate in the 130s. Patient admitted to vomiting twice at home she has a sore throat at this time. On exam patient has palpable anterior cervical lymphadenopathy. She is slightly diaphoretic. Patient has a BMI of 52.5. Patient's symptoms are progressive. Symptoms are moderate in intensity. No specific worsening or improving factors. Patient voices no other complaints or concerns at this time. Portions of this note were created with voice recognition technology. There may be grammatical, spelling, punctuation or sound alike errors Timing/Duration: day(s) (3 days) Severity: moderate Modifying Factors: Improves With: nothing Associated Symptoms: denies symptoms Allergies/Adverse Reactions: No Known Drug Allergies Allergy (Verified 02/27/23 07:06) Home Medications: No Reportable Medications [No Reported Medications] 02/27/23 [History] Hx Tetanus, Diphtheria Vaccination/Date Given: No Hx Influenza Vaccination/Date Given: No Hx Pneumococcal Vaccination/Date Given: No Immunizations Up to Date: No Travel Risk - International Travel Have you traveled outside of the country in past 3 weeks: No - Coronavirus Screening Are you exhibiting any of the following symptoms?: Yes Symptoms: Fever, Vomiting/Diarrhea Close contact with a COVID-19 positive Pt in past 14-21 Days: No - Vaccine Status Have you recieved a Covid-19 vaccination: Yes Operating Room Coordinator: Moderna - Vaccination Dates Date of 2cond Vaccination (if applicable): . - Review of Systems Constitutional: No Symptoms, No Fever, No Chills Eyes: No Symptoms Ears, Nose, & Throat: No Symptoms Respiratory: No Symptoms, No Cough, No Dyspnea Cardiac: No Symptoms, No Chest Pain, No Edema, No Syncope Abdominal/Gastrointestinal: No Symptoms, No Abdominal Pain, No Nausea, No Vomiting, No Diarrhea Genitourinary Symptoms: No Symptoms, No Dysuria Musculoskeletal: No Symptoms, No Back Pain, No Neck Pain Skin: No Symptoms, No Rash Neurological: No Symptoms, No Dizziness, No Focal Weakness, No Sensory Changes Psychological: No Symptoms Endocrine: No Symptoms Hematologic/Lymphatic: No Symptoms Immunological/Allergic: No Symptoms All Other Systems: Reviewed and Negative - Past Medical History Pertinent Past Medical History: Yes Psycho-Social History: Depression - Past Surgical History Past Surgical History: Yes Female Surgical History: Section - Social History Smoking Status: Former smoker How long have you smoked: 1 year Exposure to second hand smoke: No Drug Use: none Patient Lives Alone: No - Female History Hx Last Menstrual Period: 02/22/23 Hx Now: No - Nursing Vital Signs Nursing Vital Signs: Initial Vital Signs Temperature 101.8 F 02/27/23 06:58 Pulse Rate 140 H 02/27/23 06:58 Respiratory Rate 20 02/27/23 06:58 Blood Pressure 154/99 02/27/23 06:58 O2 Sat by Pulse Oximetry 100 02/27/23 06:58 Pain Scale Pain Intensity 10 - Physical Exam General Appearance: no apparent distress, alert Eye Exam: PERRL/EOMI, eyes nml inspection Ears, Nose, Throat Exam: normal ENT inspection, TMs normal, pharynx normal, moist mucous membranes Neck Exam: normal inspection, non-tender, supple, full range of motion Respiratory Exam: normal breath sounds, lungs clear, airway intact, No respiratory distress Cardiovascular Exam: regular rate/rhythm, normal heart sounds, normal peripheral pulses Gastrointestinal/Abdomen Exam: soft, normal bowel sounds, No tenderness, No mass Back Exam: normal inspection, normal range of motion, No CVA tenderness, No vertebral tenderness Extremity Exam: normal inspection, normal range of motion, pelvis stable Neurologic Exam: alert, oriented x 3, cooperative, normal mood/affect, nml cerebellar function, nml station & gait, sensation nml, No motor deficits Skin Exam: normal color, warm, dry, No rash Lymphatic Exam: No adenopathy SpO2 Interpretation: normal SpO2: 100 O2 Delivery: Room Air - Course Nursing assessment & vital signs reviewed: Yes - CT Exams Abdomen/Pelvis CT Interpretation: Tele-radiologist Report (CT abdomen pelvis shows hepatosplenomegaly. Otherwise no acute findings.) Ordered Tests: Active Orders 24 hr Category Date Time Status IV Insertion STAT Care 02/27/23 07:18 Active Pulse Oximetry (ED) STAT Care 02/27/23 07:18 Active ABDOMEN AND PELVIS W/0 CONTRAS [CT] Stat Exams 02/27/23 07:19 Completed BLOOD CULTURE Stat Lab 02/27/23 07:39 Received CBC W DIFF Stat Lab 02/27/23 07:35 Completed CMP Stat Lab 02/27/23 07:35 Completed CULTURE,URINE Stat Lab 02/27/23 07:14 Received HCG QUALITATIVE, URINE Stat Lab 02/27/23 07:14 Completed UA W/RFX UR CULTURE Stat Lab 02/27/23 07:14 Completed Transfer Order Routine Transfer 02/27/23 Ordered Medication Summary Generic Name Dose Route Start Last Admin Trade Name Freq PRN Reason Stop Dose Admin Levofloxacin/Dextrose 500 mg in 100 mls @ 100 mls/hr 02/27/23 09:08 02/27/23 09:15 Levofloxacin 500mg/100ml D5w IV 02/27/23 10:07 100 mls/hr STAT STA 100 mls/hr Administration Discontinued Medications Generic Name Dose Route Start Last Admin Trade Name Freq PRN Reason Stop Dose Admin Acetaminophen 975 mg 02/27/23 07:18 02/27/23 07:24 Acetaminophen 325 Mg Tablet PO 02/27/23 07:19 Not Given STAT STA Sodium Chloride 1,000 mls @ 999 mls/hr 02/27/23 07:18 02/27/23 09:02 Sodium Chloride 0.9% 1000 Ml IV 02/27/23 08:18 Infused .Q1H1M STA Infusion Sodium Chloride Confirm 02/27/23 07:25 Sodium Chloride 0.9% 1000 Ml Administered 02/27/23 07:26 Dose 1,000 mls @ ud .ROUTE .STK-MED ONE Levofloxacin/Dextrose Confirm 02/27/23 09:14 Levofloxacin 500mg/100ml D5w Administered 02/27/23 09:15 Dose 500 mg in 100 mls @ ud IV .STK-MED ONE Lab/Rad Data: Laboratory Result Diagrams 02/27/23 07:35 02/27/23 07:35 Laboratory Results 02/27/23 02/27/23 02/27/23 Range/Units 07:35 07:35 07:30 WBC 8.2 (4.0-10.5) x10^3/uL RBC 4.85 (4.1-5.4) x10^6/uL Hgb 9.6 L (12.0-16.0) g/dL Hct 33.5 L (35-47) % MCV 69.1 L (78-100) fL MCH 19.8 L (26-32) pg MCHC 28.7 L (32-36) g/dL RDW 17.6 H (11.5-14.0) % Plt Count 310 (150-450) x10^3/uL MPV 10.5 (7.5-11.0) fL Gran % 77.8 H (36.0-66.0) % Immature Gran % (Auto) 0.5 H (0.00-0.4) % Nucleat RBC Rel Count 0.0 (0.00-0.1) % Eos # (Auto) 0 (0-0.5) x10^3/uL Immature Gran # (Auto) 0.04 H (0.00-0.03) x10^3u/L Absolute Lymphs (auto) 1.13 (1.0-4.6) x10^3/uL Absolute Monos (auto) 0.61 (0.0-1.3) x10^3/uL Absolute Nucleated RBC 0.00 (0.00-0.01) x10^3u/L Lymphocytes % 13.8 L (24.0-44.0) % Monocytes % 7.5 (0.0-12.0) % Eosinophils % 0.0 (0.00-5.0) % Basophils % 0.4 (0.0-0.4) % Absolute Granulocytes 6.37 (1.4-6.9) x10^3/uL Basophils # 0.03 (0-0.4) x10^3/uL Sodium 137 (137-145) mmol/L Potassium 3.8 (3.5-5.1) mmol/L Chloride 101 (98-107) mmol/L Carbon Dioxide 24 (22-30) mmol/L Anion Gap 15.1 H (5-15) MEQ/L BUN 9 (7-17) mg/dL Creatinine 0.77 (0.52-1.04) mg/dL Estimated GFR > 60.0 ML/MIN Glucose 110 H (74-106) mg/dL Calcium 8.5 (8.4-10.2) mg/dL Total Bilirubin 0.30 (0.2-1.3) mg/dL AST 21 (14-36) U/L ALT 22 (0-35) U/L Alkaline Phosphatase 65 (38-126) U/L Serum Total Protein 7.8 (6.3-8.2) g/dL Albumin 4.2 (3.5-5.0) g/dL Urine Color (Yellow) Urine Appearance (Clear) Urine pH (4.6-8.0) Ur Specific [place] (1.005-1.030) Urine Protein (Negative) Urine Glucose (UA) (Negative) mg/dL Urine Ketones (Negative) Urine Blood (Negative) Urine Nitrite (Negative) Urine Bilirubin (Negative) Urine Urobilinogen (0.2) mg/dL Ur Leukocyte Esterase (Negative) U Hyaline Cast (Auto) (0-2) /LPF Urine Microscopic RBC (0-5) /HPF Urine Microscopic WBC (0-5) /HPF Ur Epithelial Cells (None Seen) /HPF Urine Bacteria (None Seen) /HPF Urine Culture Reflexed (NO) Urine HCG, Qual (NEGATIVE) Influenza Type A Ag (NEGATIVE) Influenza Type B Ag (NEGATIVE) RSV (PCR) (NEGATIVE) SARS-CoV-2 (PCR) (NEGATIVE) Group A Strep Antibody NOT DETECTED (NEGATIVE) Slides for Path Review YES 02/27/23 02/27/23 02/27/23 Range/Units 07:30 07:14 07:14 WBC (4.0-10.5) x10^3/uL RBC (4.1-5.4) x10^6/uL Hgb (12.0-16.0) g/dL Hct (35-47) % MCV (78-100) fL MCH (26-32) pg MCHC (32-36) g/dL RDW (11.5-14.0) % Plt Count (150-450) x10^3/uL MPV (7.5-11.0) fL Gran % (36.0-66.0) % Immature Gran % (Auto) (0.00-0.4) % Nucleat RBC Rel Count (0.00-0.1) % Eos # (Auto) (0-0.5) x10^3/uL Immature Gran # (Auto) (0.00-0.03) x10^3u/L Absolute Lymphs (auto) (1.0-4.6) x10^3/uL Absolute Monos (auto) (0.0-1.3) x10^3/uL Absolute Nucleated RBC (0.00-0.01) x10^3u/L Lymphocytes % (24.0-44.0) % Monocytes % (0.0-12.0) % Eosinophils % (0.00-5.0) % Basophils % (0.0-0.4) % Absolute Granulocytes (1.4-6.9) x10^3/uL Basophils # (0-0.4) x10^3/uL Sodium (137-145) mmol/L Potassium (3.5-5.1) mmol/L Chloride (98-107) mmol/L Carbon Dioxide (22-30) mmol/L Anion Gap (5-15) MEQ/L BUN (7-17) mg/dL Creatinine (0.52-1.04) mg/dL Estimated GFR ML/MIN Glucose (74-106) mg/dL Calcium (8.4-10.2) mg/dL Total Bilirubin (0.2-1.3) mg/dL AST (14-36) U/L ALT (0-35) U/L Alkaline Phosphatase (38-126) U/L Serum Total Protein (6.3-8.2) g/dL Albumin (3.5-5.0) g/dL Urine Color Dark Yellow A (Yellow) Urine Appearance Cloudy A (Clear) Urine pH 5.5 (4.6-8.0) Ur Specific [place] 1.025 (1.005-1.030) Urine Protein 100 A (Negative) Urine Glucose (UA) Negative (Negative) mg/dL Urine Ketones Trace A (Negative) Urine Blood Small A (Negative) Urine Nitrite Negative (Negative) Urine Bilirubin Negative (Negative) Urine Urobilinogen 1.0 A (0.2) mg/dL Ur Leukocyte Esterase Moderate A (Negative) U Hyaline Cast (Auto) 3-5 A (0-2) /LPF Urine Microscopic RBC 6-10 A (0-5) /HPF Urine Microscopic WBC >100 A (0-5) /HPF Ur Epithelial Cells Few (None Seen) /HPF Urine Bacteria Few A (None Seen) /HPF Urine Culture Reflexed YES (NO) Urine HCG, Qual NEGATIVE (NEGATIVE) Influenza Type A Ag NEGATIVE (NEGATIVE) Influenza Type B Ag NEGATIVE (NEGATIVE) RSV (PCR) NEGATIVE (NEGATIVE) SARS-CoV-2 (PCR) NEGATIVE (NEGATIVE) Group A Strep Antibody (NEGATIVE) Slides for Path Review - Progress Progress: improved Progress Note: Patient is 22-year-old female presents to our ED for evaluation of dysuria lower abdominal discomfort. Upon arrival to our ED patient was found to be tachycardic in the 130s. Patient was febrile at 101.8. Physical exam shows some tenderness along the flanks and lower abdomen. CT abdomen pelvis negative for acute pathology. Urinalysis significant for urinary tract infection/pyuria. Patient has a hemoglobin of 9.6 normocytic anemia. Case discussed with Dr. Stuart who accepts admission to observation. Plan of care discussed with patient. She agrees to admission to [facility] for further evaluation and treatment. Portions of this note were created with voice recognition technology. There may be grammatical, spelling, punctuation or sound alike errors Complexity of problems addressed is severe, threat to bodily function. No critical care time Complex of data reviewed and analyzed is extensive. Test ordered. Test reviewed and analyzed. Clinical correlation made between the test findings/imaging studies history and physical including vitals. Patient has a fever and tachycardia with a nidus of infection. Patient's urinary tract infection has become systemic and is now creating severe systemic manifestations. Risk of complication and or risk morbidity/mortality of patient management is high. Patient requires hospitalization for further evaluation and treatment. Vitals stable at this time. Diagnosis pyelonephritis, fever, tachycardia, normo cytic anemia time spent to admit patient is approximately 15 to 20 minutes. Plan of care established for shared decision making. Patient is comfortable at this time. She agrees with admission to [facility] for further evaluation and treatment. Portions of this note were created with voice recognition technology. There may be grammatical, spelling, punctuation or sound alike errors 02/27/23 09:[address] Other (jonah) Will see patient in: hospital (observation) Counseled pt/family regarding: lab results, diagnosis, rad results - Departure Departure Disposition: Observation Clinical Impression: Fever, UTI (urinary tract infection), Tachycardia, Microcytic anemia, Sore throat, Pyelonephritis Condition: Stable Critical Care Time: No Referrals: ERIN MINA NP [Primary Care Provider] - Follow up/PCP as directed Additional Instructions: Discharge/Care Plan KAREL PAN was seen on 02/27/23 in the Emergency Room. The patient was counseled regarding Diagnosis,Lab results, Imaging studies, need for follow up and when to return to the Emergency Room. Prescriptions given: Discharge Note I have spoken with the patient and/or caregivers. I have explained the patient's condition, diagnosis and treatment plan based on the information available to me at this time. I have answered the patient's and/or caregiver's questions and addressed any concerns. The patient and/or caregivers have as good understanding of the patient's diagnosis, condition and treatment plan as can be expected at this point. The vital signs have been stable. The patient's condition is stable and appropriate for discharge from the emergency department. The patient will pursue further outpatient evaluation with the primary care physician or other designated or consulting physician as outlined in the discharge instructions. The patient and/or caregivers are agreeable to this plan of care and follow-up instructions have been explained in detail. The patient and/or caregivers have received these instruction. The patient/and or caregivers are aware that any significant change in condition or worsening of symptoms should prompt an immediate return to this or the closest emergency department or call 911.
[2023-02-27] MEDS ORDERED: Sodium Chloride 0.9% 1000 ML 1,000 ML ONE (07:25)
[2023-02-27] MEDS: Sodium Chloride 0.9% 1000 ML 1,000 ML IV STA ×2 (07:40→10:15)
[2023-02-27 07:58] LABS: Absolute Neutrophil Ct (ANC) 6.37 x10^3/uL (1.4-6.9); BASOPHIL % 0.4 % (0.0-0.4); Basophil (Absolute #) 0.03 x10^3/uL (0-0.4); Eosinophil (Absolute #) 0 x10^3/uL (0-0.5); Hematocrit 33.5 % (35-47); Hemoglobin 9.6 g/dL (12.0-16.0); IMMATURE GRAN # 0.04 x10^3u/L (0.00-0.03); IMMATURE GRAN % 0.5 % (0.00-0.4); Lymphocyte (Absolute #) 1.13 x10^3/uL (1.0-4.6); Lymphocytes % 13.8 % (24.0-44.0); Mean Cell Volume 69.1 fL (78-100); Mean Corpuscular Hemoglobin 19.8 pg (26-32); Mean Corpuscular Hgb Concent. 28.7 g/dL (32-36); Mean Platelet Volume 10.5 fL (7.5-11.0); Monocyte (Absolute #) 0.61 x10^3/uL (0.0-1.3); Monocytes % 7.5 % (0.0-12.0); Neutrophil % 77.8 % (36.0-66.0); Platelet Count 310 x10^3/uL (150-450); Red Blood Count 4.85 x10^6/uL (4.1-5.4); Red Cell Distribution Width 17.6 % (11.5-14.0); White Blood Count 8.2 x10^3/uL (4.0-10.5)
[2023-02-27 08:05] LABS: HCG URINE TEST NEGATIVE (NEGATIVE)
[2023-02-27 08:06] LABS: Appearance Cloudy (Clear); Bacteria Few /HPF (None Seen); Bilirubin Negative (Negative); Blood Small (Negative); Epithelial Cells Few /HPF (None Seen); Glucose, Urine Negative (Negative); Ketones Trace (Negative); Leukocyte Esterase Moderate (Negative); Nitrite Negative (Negative); Ph 5.5 (4.6-8.0); Protein,Urine Dip 100 (Negative); Specific Gravity 1.025 (1.005-1.030); WBC >100 /HPF (0-5)
[2023-02-27 08:07] LABS: ADD URINE CULTURE? YES (NO)
[2023-02-27 08:12] LABS: ALBUMIN 4.2 g/dL (3.5-5.0); ALKALINE PHOSPHATASE 65 U/L (38-126); ANION GAP 15.1 MEQ/L (5-15); BLOOD UREA NITROGEN 9 mg/dL (7-17); CHLORIDE 101 mmol/L (98-107); Calcium 8.5 mg/dL (8.4-10.2); Carbon Dioxide 24 mmol/L (22-30); Creatinine 1 0.77 mg/dL (0.52-1.04); EST GLOMERULAR FILTRATION RATE > 60.0 ML/MIN; Glucose 110 mg/dL (74-106); Potassium 3.8 mmol/L (3.5-5.1); SGOT/AST 21 U/L (14-36); SGPT/ALT 22 U/L (0-35); SODIUM 137 mmol/L (137-145); Total Protein 7.8 g/dL (6.3-8.2)
[2023-02-27 08:34] LABS: INFLUENZA A NEGATIVE (NEGATIVE); INFLUENZA B NEGATIVE (NEGATIVE); RESPIRATORY SYNCTIAL VIRUS NEGATIVE (NEGATIVE); SARS-CoV-2 Xpert Express NEGATIVE (NEGATIVE)
--- NOTE | 2023-02-27 08:45 | XRAY ---
Indication: Abdomen pain. Multiple contiguous axial images obtained through the abdomen and pelvis without contrast. Comparison: January 08, 2023 Lung bases remain clear. Heart not enlarged. Noncontrasted stomach and bowel loops remain nonobstructed. Appendix not visualized. Again marked 29.3 cm fatty hepatomegaly and 18.1 cm splenomegaly. No free fluid/air. Remaining liver, gallbladder, pancreas, spleen, adrenal glands, kidneys, ureters, bladder, uterus, and aorta are unremarkable for noncontrast exam. Osseous structures intact. Impression: Again fatty hepatomegaly and splenomegaly. No new/acute findings on this noncontrast exam.
[2023-02-27] MEDS ORDERED: Levofloxacin 500MG/100ML D5W 500 MG/100 ML BAG IV ONE (09:14)
[2023-02-27] MEDS: Levofloxacin 500MG/100ML D5W 500 MG/100 ML BAG IV STA ×2 (09:15→09:58)
[2023-02-27 09:16] LABS: Slide Review 1 YES
[2023-02-27] MEDS: Sodium Chloride 0.9% 1000 ML 1,000 ML IV SCH ×2 (10:25→19:22)
[2023-02-27] MEDS: ENOXAPARIN SODIUM SQ SCH (10:32)
[2023-02-27] MEDS: ROCEPHIN 1 Gm-D5w 50 ml Bag** 1 G/50 ML IVPB IV SCH (10:32)
[2023-02-27] MEDS: TYLENOL 325 MG PO PRN ×2 (10:33→22:40)
--- NOTE | 2023-02-27 10:36 | PCM.HP ---
History of Present Illness - Chief Complaint Chief Complaint: Pyelonephritis, fever tachycardia, urinary tract infection Date: 02/27/23 History of Present Illness: is a 22 year old female with no significant pmhx presented to ED 02/27/23 with complaints of fever (TMAX 105.3), N/V/D, dysuria, and sore throat since 02/23/23. She denies hematuria, frequency, back, or flank pain. Endorses diarrhea since 02/21/23 with approximately 3-4 watery stools daily. In ER patient febrile with temp at 101.8, tachycardic with pulse reaching to the 140's, and hypertensive. CT abdomen pelvis findings include hepatosplenomegaly and splenomegaly but otherwise no acute findings. Labs remarkable for Microcytic, hypochromic anemia with hgb at 9.6, which appears to be her baseline for the past several visits. Gap at 15.1. Strep group A negative. U/A suspicious for UTI. Patient received levofloxacin and NS fluid bolus as well as tylenol. Blood and urine cultures pending. [place] testing obtained and pending. PCP: Kaylah Rm Code Status: Full code - Review of Systems Constitutional: Fever, Chills, Fatigue Eyes: No Symptoms Ears, Nose, & Throat: Throat Pain Respiratory: Cough Cardiac: No Symptoms Abdominal/Gastrointestinal: Nausea, Vomiting, Diarrhea Genitourinary Symptoms: Dysuria Musculoskeletal: No Symptoms Skin: No Symptoms Neurological: No Symptoms Psychological: No Symptoms Medications & Allergies Home Medications: Home Medication List No Reportable Medications [No Reported Medications] 02/27/23 [History Confirmed 02/27/23] Allergies/Adverse Reactions: Allergies Allergy/AdvReac Type Severity Reaction Status Date / Time No Known Drug Allergies Allergy Verified 02/27/23 07:06 - Past Medical History Past Medical History: Yes Neurological History: No Pertinent History ENT History: No Pertinent History Cardiac History: No Pertinent History Respiratory History: No Pertinent History Endocrine Medical History: No Pertinent History Musculoskelatal History: No Pertinent History GI Medical History: No Pertinent History History: No Pertinent History Pyscho-Social History: Depression Reproductive Disorders: No Pertinent History - Female History Hx Last Menstrual Period: 02/22/23 Are you now?: No - Past Surgical History Past Surgical History: Yes Neuro Surgical History: No Pertinent History Cardiac History: No Pertinent History Respiratory Surgery: No Pertinent History GI Surgical History: No Pertinent History Genitourinary Surgical Hx: No Pertinent History Musculskeletal Surgical Hx: No Pertinent History Female Surgical History: Section - Social History Smoking Status: Never smoker How long have you smoked: 1 year Exposure to second hand smoke: No Alcohol: Rarely Drug Use: none - Physical Exam Vital Signs: Vital Signs - 24 hr Temp Pulse Resp BP BP Pulse Ox 02/27/23 10:09 100.7 F 129 H 16 150/87 97 02/27/23 09:42 100.7 F 129 H 16 150/87 97 02/27/23 09:28 141/100 02/27/23 09:27 100 02/27/23 09:16 98 02/27/23 09:10 120 H 12 97 02/27/23 09:00 114 H 25 H 96 02/27/23 08:50 121 H 22 98 02/27/23 08:40 126 H 21 140/100 96 02/27/23 08:30 132 H 14 96 02/27/23 08:29 128 H 21 97 02/27/23 08:10 121 H 20 100 02/27/23 08:02 115 H 28 H 95 02/27/23 08:00 97 02/27/23 07:00 114 H 25 H 152/96 96 02/27/23 06:58 101.8 F 140 H 20 154/99 100 General Appearance: mild distress Neurologic Exam: alert, oriented x 3, cooperative Eye Exam: PERRL/EOMI Ears, Nose, Throat Exam: dry mucous membranes, tonsillar exudate (erythema, white exudate Submandibular and periauricular enlarged TTP) Neck Exam: normal inspection Respiratory Exam: normal breath sounds, lungs clear Gastrointestinal/Abdomen Exam: soft, normal bowel sounds Extremity Exam: normal inspection Skin Exam: normal color Results - Labs Lab/Micro Results: Lab Results-Last 24 Hours 02/27/23 02/27/23 02/27/23 Range/Units 07:14 07:14 07:30 WBC (4.0-10.5) x10^3/uL RBC (4.1-5.4) x10^6/uL Hgb (12.0-16.0) g/dL Hct (35-47) % MCV (78-100) fL MCH (26-32) pg MCHC (32-36) g/dL RDW (11.5-14.0) % Plt Count (150-450) x10^3/uL MPV (7.5-11.0) fL Gran % (36.0-66.0) % Immature Gran % (Auto) (0.00-0.4) % Nucleat RBC Rel Count (0.00-0.1) % Eos # (Auto) (0-0.5) x10^3/uL Immature Gran # (Auto) (0.00-0.03) x10^3u/L Absolute Lymphs (auto) (1.0-4.6) x10^3/uL Absolute Monos (auto) (0.0-1.3) x10^3/uL Absolute Nucleated RBC (0.00-0.01) x10^3u/L Lymphocytes % (24.0-44.0) % Monocytes % (0.0-12.0) % Eosinophils % (0.00-5.0) % Basophils % (0.0-0.4) % Absolute Granulocytes (1.4-6.9) x10^3/uL Basophils # (0-0.4) x10^3/uL Sodium (137-145) mmol/L Potassium (3.5-5.1) mmol/L Chloride (98-107) mmol/L Carbon Dioxide (22-30) mmol/L Anion Gap (5-15) MEQ/L BUN (7-17) mg/dL Creatinine (0.52-1.04) mg/dL Estimated GFR ML/MIN Glucose (74-106) mg/dL Calcium (8.4-10.2) mg/dL Total Bilirubin (0.2-1.3) mg/dL AST (14-36) U/L ALT (0-35) U/L Alkaline Phosphatase (38-126) U/L Serum Total Protein (6.3-8.2) g/dL Albumin (3.5-5.0) g/dL Urine Color Dark Yellow A (Yellow) Urine Appearance Cloudy A (Clear) Urine pH 5.5 (4.6-8.0) Ur Specific [place] 1.025 (1.005-1.030) Urine Protein 100 A (Negative) Urine Glucose (UA) Negative (Negative) mg/dL Urine Ketones Trace A (Negative) Urine Blood Small A (Negative) Urine Nitrite Negative (Negative) Urine Bilirubin Negative (Negative) Urine Urobilinogen 1.0 A (0.2) mg/dL Ur Leukocyte Esterase Moderate A (Negative) U Hyaline Cast (Auto) 3-5 A (0-2) /LPF Urine Microscopic RBC 6-10 A (0-5) /HPF Urine Microscopic WBC >100 A (0-5) /HPF Ur Epithelial Cells Few (None Seen) /HPF Urine Bacteria Few A (None Seen) /HPF Urine Culture Reflexed YES (NO) Urine HCG, Qual NEGATIVE (NEGATIVE) Influenza Type A Ag NEGATIVE (NEGATIVE) Influenza Type B Ag NEGATIVE (NEGATIVE) RSV (PCR) NEGATIVE (NEGATIVE) SARS-CoV-2 (PCR) NEGATIVE (NEGATIVE) Group A Strep Antibody (NEGATIVE) Slides for Path Review 02/27/23 02/27/23 02/27/23 Range/Units 07:30 07:35 07:35 WBC 8.2 (4.0-10.5) x10^3/uL RBC 4.85 (4.1-5.4) x10^6/uL Hgb 9.6 L (12.0-16.0) g/dL Hct 33.5 L (35-47) % MCV 69.1 L (78-100) fL MCH 19.8 L (26-32) pg MCHC 28.7 L (32-36) g/dL RDW 17.6 H (11.5-14.0) % Plt Count 310 (150-450) x10^3/uL MPV 10.5 (7.5-11.0) fL Gran % 77.8 H (36.0-66.0) % Immature Gran % (Auto) 0.5 H (0.00-0.4) % Nucleat RBC Rel Count 0.0 (0.00-0.1) % Eos # (Auto) 0 (0-0.5) x10^3/uL Immature Gran # (Auto) 0.04 H (0.00-0.03) x10^3u/L Absolute Lymphs (auto) 1.13 (1.0-4.6) x10^3/uL Absolute Monos (auto) 0.61 (0.0-1.3) x10^3/uL Absolute Nucleated RBC 0.00 (0.00-0.01) x10^3u/L Lymphocytes % 13.8 L (24.0-44.0) % Monocytes % 7.5 (0.0-12.0) % Eosinophils % 0.0 (0.00-5.0) % Basophils % 0.4 (0.0-0.4) % Absolute Granulocytes 6.37 (1.4-6.9) x10^3/uL Basophils # 0.03 (0-0.4) x10^3/uL Sodium 137 (137-145) mmol/L Potassium 3.8 (3.5-5.1) mmol/L Chloride 101 (98-107) mmol/L Carbon Dioxide 24 (22-30) mmol/L Anion Gap 15.1 H (5-15) MEQ/L BUN 9 (7-17) mg/dL Creatinine 0.77 (0.52-1.04) mg/dL Estimated GFR > 60.0 ML/MIN Glucose 110 H (74-106) mg/dL Calcium 8.5 (8.4-10.2) mg/dL Total Bilirubin 0.30 (0.2-1.3) mg/dL AST 21 (14-36) U/L ALT 22 (0-35) U/L Alkaline Phosphatase 65 (38-126) U/L Serum Total Protein 7.8 (6.3-8.2) g/dL Albumin 4.2 (3.5-5.0) g/dL Urine Color (Yellow) Urine Appearance (Clear) Urine pH (4.6-8.0) Ur Specific [place] (1.005-1.030) Urine Protein (Negative) Urine Glucose (UA) (Negative) mg/dL Urine Ketones (Negative) Urine Blood (Negative) Urine Nitrite (Negative) Urine Bilirubin (Negative) Urine Urobilinogen (0.2) mg/dL Ur Leukocyte Esterase (Negative) U Hyaline Cast (Auto) (0-2) /LPF Urine Microscopic RBC (0-5) /HPF Urine Microscopic WBC (0-5) /HPF Ur Epithelial Cells (None Seen) /HPF Urine Bacteria (None Seen) /HPF Urine Culture Reflexed (NO) Urine HCG, Qual (NEGATIVE) Influenza Type A Ag (NEGATIVE) Influenza Type B Ag (NEGATIVE) RSV (PCR) (NEGATIVE) SARS-CoV-2 (PCR) (NEGATIVE) Group A Strep Antibody NOT DETECTED (NEGATIVE) Slides for Path Review YES - Radiology Impressions Radiology Exams & Impressions: Radiology Procedures Category Date Time Status ABDOMEN AND PELVIS W/0 CONTRAS [CT] Stat Exams 02/27/23 07:19 Completed Assessment/Plan (1) UTI (urinary tract infection) Current Visit: Yes Status: Acute Assessment & Plan: -Urinalysis reviewed, suspicious for UTI, will treat empirically with Rocephin for now, follow cultures Code(s): N39.0 - URINARY TRACT INFECTION, SITE NOT SPECIFIED (2) Fever Current Visit: Yes Status: Acute Assessment & Plan: -Most likely secondary to UTI -Tylenol PRN -IVF -Blood cultures pending Code(s): R50.9 - FEVER, UNSPECIFIED (3) Microcytic anemia Current Visit: Yes Status: Acute Assessment & Plan: -Appears chronic will add iron studies, b12/fol, ferritin, consider hematology consult if iron deficient Code(s): D50.9 - IRON DEFICIENCY ANEMIA, UNSPECIFIED (4) Pyelonephritis Current Visit: Yes Status: Acute Assessment & Plan: -see UTI, denies cva tenderness/flank or back pain -IVF Code(s): N12 - TUBULO-INTERSTITIAL NEPHRITIS, NOT SPCF ACUTE OR CHRONIC (5) Sore throat Current Visit: Yes Status: Acute Assessment & Plan: -negative for strep A, will obtain mono screen -Upon exam, bilateral tonsilar white exudates with erythema Code(s): J02.9 - ACUTE PHARYNGITIS, UNSPECIFIED (6) Tachycardia Current Visit: Yes Status: Acute Assessment & Plan: -Most likely secondary to infection -Continue IVF VTE: lovenox PPI: none Dispo: Home 1-2 days Code(s): R00.0 - TACHYCARDIA, UNSPECIFIED
[2023-02-27 18:07] LABS: Iron 23 ug/dL (37-170); Iron Saturation 7 % (20-39); TIBC 324 ug/dL (265-462)
[2023-02-28 04:53] LABS: Hematocrit 31.6 % (35-47); Hemoglobin 9.2 g/dL (12.0-16.0); Mean Corpuscular Hemoglobin 20.1 pg (26-32); Mean Corpuscular Hgb Concent. 29.1 g/dL (32-36); Mean Platelet Volume 10.8 fL (7.5-11.0); Platelet Count 265 x10^3/uL (150-450); Red Blood Count 4.58 x10^6/uL (4.1-5.4); Red Cell Distribution Width 18.2 % (11.5-14.0); White Blood Count 5.5 x10^3/uL (4.0-10.5)
[2023-02-28] MEDS: Sodium Chloride 0.9% 1000 ML 1,000 ML IV SCH ×2 (04:58→17:11)
[2023-02-28 05:08] LABS: ALBUMIN 3.9 g/dL (3.5-5.0); ALKALINE PHOSPHATASE 56 U/L (38-126); ANION GAP 11.3 MEQ/L (5-15); BLOOD UREA NITROGEN 8 mg/dL (7-17); CHLORIDE 103 mmol/L (98-107); Calcium 8.2 mg/dL (8.4-10.2); Carbon Dioxide 27 mmol/L (22-30); EST GLOMERULAR FILTRATION RATE > 60.0 ML/MIN; Glucose 94 mg/dL (74-106); Potassium 3.4 mmol/L (3.5-5.1); SGOT/AST 19 U/L (14-36); SGPT/ALT 18 U/L (0-35); SODIUM 138 mmol/L (137-145); Total Protein 7.6 g/dL (6.3-8.2)
--- NOTE | 2023-02-28 05:22 | PCM.NOTE ---
Date and Time: 02/28/23 0516 Subjective Assessment: is a 22 year old female with no significant pmhx presented to ED 02/27/23 with complaints of fever (TMAX 105.3), N/V/D, dysuria, and sore throat since 02/23/23. She denies hematuria, frequency, back, or flank pain admitted for UTI, currently on Ceftriaxone. U-cult NGTD. Patient still febrile overnight and endorses throat pain. Plan to observe overnight, pending blood/urine cultures possible discharge tomorrow. - Review of Systems Constitutional: Fever Eyes: No Symptoms Ears, Nose, & Throat: Throat Pain Respiratory: No Symptoms Cardiac: No Symptoms Abdominal/Gastrointestinal: No Symptoms Genitourinary Symptoms: No Symptoms Musculoskeletal: No Symptoms Skin: No Symptoms Neurological: No Symptoms Psychological: No Symptoms Endocrine: No Symptoms Objective Exam General Appearance: no apparent distress Neurologic Exam: alert, oriented x 3, cooperative Skin Exam: normal color Eye Exam: PERRL Ears, Nose, Throat Exam: pharyngeal erythema, tonsillar exudate Neck Exam: normal inspection Respiratory Exam: normal breath sounds, lungs clear Cardiovascular Exam: regular rate/rhythm, normal heart sounds Gastrointestinal/Abdomen Exam: soft, normal bowel sounds Extremity Exam: normal inspection Back Exam: normal inspection OBJECTIVE DATA Vital Signs: Vital Signs - 24 hr Temp Pulse Resp BP BP Pulse Ox 02/28/23 03:58 98.5 F 108 H 17 134/97 99 02/27/23 23:59 102.0 F 111 H 18 134/90 97 02/27/23 19:54 101.9 F 124 H 19 182/98 97 02/27/23 15:33 97.6 F 107 H 16 133/64 93 L 02/27/23 14:00 106 H 02/27/23 11:41 100.7 F 129 H 16 150/87 97 02/27/23 10:09 100.7 F 129 H 16 150/87 97 02/27/23 09:42 100.7 F 129 H 16 150/87 97 02/27/23 09:28 141/100 02/27/23 09:27 100 02/27/23 09:16 98 02/27/23 09:10 120 H 12 97 02/27/23 09:00 114 H 25 H 96 02/27/23 08:50 121 H 22 98 02/27/23 08:40 126 H 21 140/100 96 02/27/23 08:30 132 H 14 96 02/27/23 08:29 128 H 21 97 02/27/23 08:10 121 H 20 100 02/27/23 08:02 115 H 28 H 95 02/27/23 08:00 97 02/27/23 07:00 114 H 25 H 152/96 96 02/27/23 06:58 101.8 F 140 H 20 154/99 100 Pain Assessment - Last Documented Pain Intensity 6 Pain Scale Used 0-10 Pain Scale Intake and Output: Intake & Output 02/25/23 02/26/23 02/27/23 02/28/23 11:59 11:59 11:59 11:59 Intake Total 2009 Balance 2009 Weight 163.3 kg Lab Results: Lab Results-Last 24 Hours 02/27/23 02/27/23 02/27/23 Range/Units 07:00 07:14 07:14 WBC (4.0-10.5) x10^3/uL RBC (4.1-5.4) x10^6/uL Hgb (12.0-16.0) g/dL Hct (35-47) % MCV (78-100) fL MCH (26-32) pg MCHC (32-36) g/dL RDW (11.5-14.0) % Plt Count (150-450) x10^3/uL MPV (7.5-11.0) fL Gran % (36.0-66.0) % Immature Gran % (Auto) (0.00-0.4) % Nucleat RBC Rel Count (0.00-0.1) % Eos # (Auto) (0-0.5) x10^3/uL Immature Gran # (Auto) (0.00-0.03) x10^3u/L Absolute Lymphs (auto) (1.0-4.6) x10^3/uL Absolute Monos (auto) (0.0-1.3) x10^3/uL Absolute Nucleated RBC (0.00-0.01) x10^3u/L Lymphocytes % (24.0-44.0) % Monocytes % (0.0-12.0) % Eosinophils % (0.00-5.0) % Basophils % (0.0-0.4) % Absolute Granulocytes (1.4-6.9) x10^3/uL Basophils # (0-0.4) x10^3/uL Sodium (137-145) mmol/L Potassium (3.5-5.1) mmol/L Chloride (98-107) mmol/L Carbon Dioxide (22-30) mmol/L Anion Gap (5-15) MEQ/L BUN (7-17) mg/dL Creatinine (0.52-1.04) mg/dL Estimated GFR ML/MIN Glucose (74-106) mg/dL Calcium (8.4-10.2) mg/dL Iron (37-170) ug/dL TIBC (265-462) ug/dL Iron Saturation (20-39) % Ferritin (6.24-137) ng/mL Total Bilirubin (0.2-1.3) mg/dL AST (14-36) U/L ALT (0-35) U/L Alkaline Phosphatase (38-126) U/L Serum Total Protein (6.3-8.2) g/dL Albumin (3.5-5.0) g/dL Vitamin B12 (239-931) pg/mL Urine Color Dark Yellow A (Yellow) Urine Appearance Cloudy A (Clear) Urine pH 5.5 (4.6-8.0) Ur Specific [place] 1.025 (1.005-1.030) Urine Protein 100 A (Negative) Urine Glucose (UA) Negative (Negative) mg/dL Urine Ketones Trace A (Negative) Urine Blood Small A (Negative) Urine Nitrite Negative (Negative) Urine Bilirubin Negative (Negative) Urine Urobilinogen 1.0 A (0.2) mg/dL Ur Leukocyte Esterase Moderate A (Negative) U Hyaline Cast (Auto) 3-5 A (0-2) /LPF Urine Microscopic RBC 6-10 A (0-5) /HPF Urine Microscopic WBC >100 A (0-5) /HPF Ur Epithelial Cells Few (None Seen) /HPF Urine Bacteria Few A (None Seen) /HPF Urine Culture Reflexed YES (NO) Urine HCG, Qual NEGATIVE (NEGATIVE) Monoscreen NEGATIVE (NEGATIVE) Influenza Type A Ag (NEGATIVE) Influenza Type B Ag (NEGATIVE) RSV (PCR) (NEGATIVE) SARS-CoV-2 (PCR) (NEGATIVE) Group A Strep Antibody (NEGATIVE) Slides for Path Review 02/27/23 02/27/23 02/27/23 Range/Units 07:30 07:30 07:35 WBC 8.2 (4.0-10.5) x10^3/uL RBC 4.85 (4.1-5.4) x10^6/uL Hgb 9.6 L (12.0-16.0) g/dL Hct 33.5 L (35-47) % MCV 69.1 L (78-100) fL MCH 19.8 L (26-32) pg MCHC 28.7 L (32-36) g/dL RDW 17.6 H (11.5-14.0) % Plt Count 310 (150-450) x10^3/uL MPV 10.5 (7.5-11.0) fL Gran % 77.8 H (36.0-66.0) % Immature Gran % (Auto) 0.5 H (0.00-0.4) % Nucleat RBC Rel Count 0.0 (0.00-0.1) % Eos # (Auto) 0 (0-0.5) x10^3/uL Immature Gran # (Auto) 0.04 H (0.00-0.03) x10^3u/L Absolute Lymphs (auto) 1.13 (1.0-4.6) x10^3/uL Absolute Monos (auto) 0.61 (0.0-1.3) x10^3/uL Absolute Nucleated RBC 0.00 (0.00-0.01) x10^3u/L Lymphocytes % 13.8 L (24.0-44.0) % Monocytes % 7.5 (0.0-12.0) % Eosinophils % 0.0 (0.00-5.0) % Basophils % 0.4 (0.0-0.4) % Absolute Granulocytes 6.37 (1.4-6.9) x10^3/uL Basophils # 0.03 (0-0.4) x10^3/uL Sodium (137-145) mmol/L Potassium (3.5-5.1) mmol/L Chloride (98-107) mmol/L Carbon Dioxide (22-30) mmol/L Anion Gap (5-15) MEQ/L BUN (7-17) mg/dL Creatinine (0.52-1.04) mg/dL Estimated GFR ML/MIN Glucose (74-106) mg/dL Calcium (8.4-10.2) mg/dL Iron (37-170) ug/dL TIBC (265-462) ug/dL Iron Saturation (20-39) % Ferritin (6.24-137) ng/mL Total Bilirubin (0.2-1.3) mg/dL AST (14-36) U/L ALT (0-35) U/L Alkaline Phosphatase (38-126) U/L Serum Total Protein (6.3-8.2) g/dL Albumin (3.5-5.0) g/dL Vitamin B12 (239-931) pg/mL Urine Color (Yellow) Urine Appearance (Clear) Urine pH (4.6-8.0) Ur Specific [place] (1.005-1.030) Urine Protein (Negative) Urine Glucose (UA) (Negative) mg/dL Urine Ketones (Negative) Urine Blood (Negative) Urine Nitrite (Negative) Urine Bilirubin (Negative) Urine Urobilinogen (0.2) mg/dL Ur Leukocyte Esterase (Negative) U Hyaline Cast (Auto) (0-2) /LPF Urine Microscopic RBC (0-5) /HPF Urine Microscopic WBC (0-5) /HPF Ur Epithelial Cells (None Seen) /HPF Urine Bacteria (None Seen) /HPF Urine Culture Reflexed (NO) Urine HCG, Qual (NEGATIVE) Monoscreen (NEGATIVE) Influenza Type A Ag NEGATIVE (NEGATIVE) Influenza Type B Ag NEGATIVE (NEGATIVE) RSV (PCR) NEGATIVE (NEGATIVE) SARS-CoV-2 (PCR) NEGATIVE (NEGATIVE) Group A Strep Antibody NOT DETECTED (NEGATIVE) Slides for Path Review YES 02/27/23 02/27/23 02/27/23 Range/Units 07:35 07:35 07:35 WBC (4.0-10.5) x10^3/uL RBC (4.1-5.4) x10^6/uL Hgb (12.0-16.0) g/dL Hct (35-47) % MCV (78-100) fL MCH (26-32) pg MCHC (32-36) g/dL RDW (11.5-14.0) % Plt Count (150-450) x10^3/uL MPV (7.5-11.0) fL Gran % (36.0-66.0) % Immature Gran % (Auto) (0.00-0.4) % Nucleat RBC Rel Count (0.00-0.1) % Eos # (Auto) (0-0.5) x10^3/uL Immature Gran # (Auto) (0.00-0.03) x10^3u/L Absolute Lymphs (auto) (1.0-4.6) x10^3/uL Absolute Monos (auto) (0.0-1.3) x10^3/uL Absolute Nucleated RBC (0.00-0.01) x10^3u/L Lymphocytes % (24.0-44.0) % Monocytes % (0.0-12.0) % Eosinophils % (0.00-5.0) % Basophils % (0.0-0.4) % Absolute Granulocytes (1.4-6.9) x10^3/uL Basophils # (0-0.4) x10^3/uL Sodium 137 (137-145) mmol/L Potassium 3.8 (3.5-5.1) mmol/L Chloride 101 (98-107) mmol/L Carbon Dioxide 24 (22-30) mmol/L Anion Gap 15.1 H (5-15) MEQ/L BUN 9 (7-17) mg/dL Creatinine 0.77 (0.52-1.04) mg/dL Estimated GFR > 60.0 ML/MIN Glucose 110 H (74-106) mg/dL Calcium 8.5 (8.4-10.2) mg/dL Iron 29 L (37-170) ug/dL TIBC (265-462) ug/dL Iron Saturation (20-39) % Ferritin 27.0 (6.24-137) ng/mL Total Bilirubin 0.30 (0.2-1.3) mg/dL AST 21 (14-36) U/L ALT 22 (0-35) U/L Alkaline Phosphatase 65 (38-126) U/L Serum Total Protein 7.8 (6.3-8.2) g/dL Albumin 4.2 (3.5-5.0) g/dL Vitamin B12 424 (239-931) pg/mL Urine Color (Yellow) Urine Appearance (Clear) Urine pH (4.6-8.0) Ur Specific [place] (1.005-1.030) Urine Protein (Negative) Urine Glucose (UA) (Negative) mg/dL Urine Ketones (Negative) Urine Blood (Negative) Urine Nitrite (Negative) Urine Bilirubin (Negative) Urine Urobilinogen (0.2) mg/dL Ur Leukocyte Esterase (Negative) U Hyaline Cast (Auto) (0-2) /LPF Urine Microscopic RBC (0-5) /HPF Urine Microscopic WBC (0-5) /HPF Ur Epithelial Cells (None Seen) /HPF Urine Bacteria (None Seen) /HPF Urine Culture Reflexed (NO) Urine HCG, Qual (NEGATIVE) Monoscreen (NEGATIVE) Influenza Type A Ag (NEGATIVE) Influenza Type B Ag (NEGATIVE) RSV (PCR) (NEGATIVE) SARS-CoV-2 (PCR) (NEGATIVE) Group A Strep Antibody (NEGATIVE) Slides for Path Review 02/27/23 02/28/23 02/28/23 Range/Units 07:35 04:18 04:18 WBC 5.5 (4.0-10.5) x10^3/uL RBC 4.58 (4.1-5.4) x10^6/uL Hgb 9.2 L (12.0-16.0) g/dL Hct 31.6 L (35-47) % MCV 69.0 L (78-100) fL MCH 20.1 L (26-32) pg MCHC 29.1 L (32-36) g/dL RDW 18.2 H (11.5-14.0) % Plt Count 265 (150-450) x10^3/uL MPV 10.8 (7.5-11.0) fL Gran % (36.0-66.0) % Immature Gran % (Auto) (0.00-0.4) % Nucleat RBC Rel Count (0.00-0.1) % Eos # (Auto) (0-0.5) x10^3/uL Immature Gran # (Auto) (0.00-0.03) x10^3u/L Absolute Lymphs (auto) (1.0-4.6) x10^3/uL Absolute Monos (auto) (0.0-1.3) x10^3/uL Absolute Nucleated RBC (0.00-0.01) x10^3u/L Lymphocytes % (24.0-44.0) % Monocytes % (0.0-12.0) % Eosinophils % (0.00-5.0) % Basophils % (0.0-0.4) % Absolute Granulocytes (1.4-6.9) x10^3/uL Basophils # (0-0.4) x10^3/uL Sodium 138 (137-145) mmol/L Potassium 3.4 L (3.5-5.1) mmol/L Chloride 103 (98-107) mmol/L Carbon Dioxide 27 (22-30) mmol/L Anion Gap 11.3 (5-15) MEQ/L BUN 8 (7-17) mg/dL Creatinine 0.70 (0.52-1.04) mg/dL Estimated GFR > 60.0 ML/MIN Glucose 94 (74-106) mg/dL Calcium 8.2 L (8.4-10.2) mg/dL Iron 23 L (37-170) ug/dL TIBC 324 (265-462) ug/dL Iron Saturation 7 L (20-39) % Ferritin (6.24-137) ng/mL Total Bilirubin 0.30 (0.2-1.3) mg/dL AST 19 (14-36) U/L ALT 18 (0-35) U/L Alkaline Phosphatase 56 (38-126) U/L Serum Total Protein 7.6 (6.3-8.2) g/dL Albumin 3.9 (3.5-5.0) g/dL Vitamin B12 (239-931) pg/mL Urine Color (Yellow) Urine Appearance (Clear) Urine pH (4.6-8.0) Ur Specific [place] (1.005-1.030) Urine Protein (Negative) Urine Glucose (UA) (Negative) mg/dL Urine Ketones (Negative) Urine Blood (Negative) Urine Nitrite (Negative) Urine Bilirubin (Negative) Urine Urobilinogen (0.2) mg/dL Ur Leukocyte Esterase (Negative) U Hyaline Cast (Auto) (0-2) /LPF Urine Microscopic RBC (0-5) /HPF Urine Microscopic WBC (0-5) /HPF Ur Epithelial Cells (None Seen) /HPF Urine Bacteria (None Seen) /HPF Urine Culture Reflexed (NO) Urine HCG, Qual (NEGATIVE) Monoscreen (NEGATIVE) Influenza Type A Ag (NEGATIVE) Influenza Type B Ag (NEGATIVE) RSV (PCR) (NEGATIVE) SARS-CoV-2 (PCR) (NEGATIVE) Group A Strep Antibody (NEGATIVE) Slides for Path Review Radiology Exams: Radiology Procedures Category Date Time Status ABDOMEN AND PELVIS W/0 CONTRAS [CT] Stat Exams 02/27/23 07:19 Completed Assessment/Plan (1) UTI (urinary tract infection) Current Visit: Yes Status: Acute Assessment & Plan: --Urinalysis reviewed, suspicious for UTI, will treat empirically with Rocephin for now, follow cultures, NGTD Code(s): N39.0 - URINARY TRACT INFECTION, SITE NOT SPECIFIED (2) Fever Current Visit: Yes Status: Acute Assessment & Plan: Possible acute pyelonephritis versus unspecified viral syndrome, fever, chills, tachycardia: IV fluids, IV ceftriaxone. Monospot negative. Monitor clinical course and follow culture. 02/28/23: -Febrile overnight at 102 Code(s): R50.9 - FEVER, UNSPECIFIED (3) Microcytic anemia Current Visit: Yes Status: Acute Assessment & Plan: -Appears chronic will add iron studies, b12/fol, ferritin, consider hematology consult if iron deficient 02/28: -Iron sat at 7%, will give IV with heme/onc referral for further management Code(s): D50.9 - IRON DEFICIENCY ANEMIA, UNSPECIFIED (4) Pyelonephritis Current Visit: Yes Status: Acute Assessment & Plan: -see UTI, denies cva tenderness/flank or back pain -IVF Code(s): N12 - TUBULO-INTERSTITIAL NEPHRITIS, NOT SPCF ACUTE OR CHRONIC (5) Sore throat Current Visit: Yes Status: Acute Assessment & Plan: -negative for strep A, will obtain mono screen -Upon exam, bilateral tonsilar white exudates with erythema 02/28: -Will send for culture/re-swab Code(s): J02.9 - ACUTE PHARYNGITIS, UNSPECIFIED (6) Diarrhea Current Visit: Yes Status: Acute Assessment & Plan: -Stools for cdiff, culture, op, giardia,shag 02/28: -Patient state this is chronic, stools pending Code(s): R19.7 - DIARRHEA, UNSPECIFIED (7) Tachycardia Current Visit: Yes Status: Acute Assessment & Plan: -Most likely secondary to infection -Continue IVF VTE: lovenox PPI: none Dispo: Home 1-2 days Code(s): R00.0 - TACHYCARDIA, UNSPECIFIED
[2023-02-28] MEDS ORDERED: TYLENOL 325 MG PO PRN (07:43)
[2023-02-28] MEDS: ROCEPHIN 1 Gm-D5w 50 ml Bag** 1 G/50 ML IVPB IV SCH (10:12)
[2023-02-28] MEDS: ENOXAPARIN SODIUM SQ SCH (10:12)
[2023-02-28] MEDS ORDERED: Ferrlecit 62.5 MG/5 Ml IV SCH (13:15)
[2023-02-28] MEDS: SODIUM CHLORIDE 0.9% IV SCH (14:22)
[2023-02-28] MEDS: FERRLECIT IV SCH (14:22)
[2023-03-01] MEDS: Sodium Chloride 0.9% 1000 ML 1,000 ML IV SCH (03:02)
[2023-03-01 04:31] VITALS: TEMP 97.1
[2023-03-01 04:40] LABS: Hematocrit 30.8 % (35-47); Hemoglobin 9.1 g/dL (12.0-16.0); Mean Corpuscular Hemoglobin 20.1 pg (26-32); Mean Corpuscular Hgb Concent. 29.5 g/dL (32-36); Mean Platelet Volume 10.1 fL (7.5-11.0); Platelet Count 289 x10^3/uL (150-450); Red Blood Count 4.53 x10^6/uL (4.1-5.4); Red Cell Distribution Width 18.1 % (11.5-14.0); White Blood Count 5.8 x10^3/uL (4.0-10.5)
[2023-03-01 04:57] LABS: ALBUMIN 3.9 g/dL (3.5-5.0); ALKALINE PHOSPHATASE 56 U/L (38-126); ANION GAP 13.3 MEQ/L (5-15); BLOOD UREA NITROGEN 6 mg/dL (7-17); CHLORIDE 104 mmol/L (98-107); Calcium 8.3 mg/dL (8.4-10.2); Carbon Dioxide 26 mmol/L (22-30); Creatinine 1 0.63 mg/dL (0.52-1.04); EST GLOMERULAR FILTRATION RATE > 60.0 ML/MIN; Glucose 109 mg/dL (74-106); Potassium 3.3 mmol/L (3.5-5.1); SGOT/AST 22 U/L (14-36); SGPT/ALT 18 U/L (0-35); SODIUM 139 mmol/L (137-145); Total Protein 7.6 g/dL (6.3-8.2)
[2023-03-01] MEDS: Klor Con PO SCH ×2 (05:35→07:50)
[2023-03-01] MEDS: ROCEPHIN 1 Gm-D5w 50 ml Bag** 1 G/50 ML IVPB IV SCH (09:26)
[2023-03-01] MEDS: ENOXAPARIN SODIUM SQ SCH (09:26)
[2023-03-01] MEDS: FERRLECIT IV SCH (10:41)
[2023-03-01] MEDS: SODIUM CHLORIDE 0.9% IV SCH (10:41)
[2023-03-01 11:34] VITALS: BP 156/83; PULSE 99; RESP 17; O2SAT 99
--- NOTE | 2023-03-01 12:14 | PCM.DS ---
Discharge Summary Date of Admission: 02/27/23 09:35 Date of Discharge: 03/01/23 Admitting Physician: ROSALIE ESQUEDA MD Primary Care Provider: ERIN MINA Allergies Allergies No Known Drug Allergies Allergy (Verified 02/27/23 07:06) Hospital Summary - Hospital Course Hospital Course: is a 22 year old female with no significant pmhx presented to ED 02/27/23 with complaints of fever (TMAX 105.3), N/V/D, dysuria, and sore throat since 02/23/23. Fever of unclear etiology, questionable acute pyelonephritis, acute pharyngitis, possible viral syndrome: during hospitalization covered with empiric IV antibiotics. Throat culture requested (strep swab negative) was negative. Blood and urine cultures also negative. Lab work unremarkable. Patient now afebrile and feeling much better. Discussed possibility of outpatient ID referral if symptoms return, and ER visit if severe. Patient also noted with iron deficiency anemia, iron saturation at 7%. She has received two doses of Ferrlecit during hospitalization and will return home with ferrous sulfate. Discussed case with Dr. Yusuf who will follow as outpatient. -New Diagnoses: Fever of unknown origin -New Medications: Ferrous sulfate -Medications Discontinued: none -Follow up: PCP/ ID PRN/ [facility] heme/onc -Results pending: bcult -Outpatient testing to order: none -Latest Assessment and Plan: (1) UTI (urinary tract infection) Current Visit: Yes Status: Acute Assessment & Plan: --Urinalysis reviewed, suspicious for UTI, will treat empirically with Rocephin for now, follow cultures, NGTD Code(s): N39.0 - URINARY TRACT INFECTION, SITE NOT SPECIFIED (2) Fever Current Visit: Yes Status: Acute Assessment & Plan: Possible acute pyelonephritis versus unspecified viral syndrome, fever, chills, tachycardia: IV fluids, IV ceftriaxone. Monospot negative. Monitor clinical course and follow culture. 02/28/23: -Febrile overnight at 102 Code(s): R50.9 - FEVER, UNSPECIFIED (3) Microcytic anemia Current Visit: Yes Status: Acute Assessment & Plan: -Appears chronic will add iron studies, b12/fol, ferritin, consider hematology consult if iron deficient 02/28: -Iron sat at 7%, will give IV with heme/onc referral for further management Code(s): D50.9 - IRON DEFICIENCY ANEMIA, UNSPECIFIED (4) Pyelonephritis Current Visit: Yes Status: Acute Assessment & Plan: -see UTI, denies cva tenderness/flank or back pain -IVF Code(s): N12 - TUBULO-INTERSTITIAL NEPHRITIS, NOT SPCF ACUTE OR CHRONIC (5) Sore throat Current Visit: Yes Status: Acute Assessment & Plan: -negative for strep A, will obtain mono screen -Upon exam, bilateral tonsilar white exudates with erythema 02/28: -Will send for culture/re-swab Code(s): J02.9 - ACUTE PHARYNGITIS, UNSPECIFIED (6) Diarrhea Current Visit: Yes Status: Acute Assessment & Plan: -Stools for cdiff, culture, op, giardia,shag 02/28: -Patient state this is chronic, stools pending Code(s): R19.7 - DIARRHEA, UNSPECIFIED (7) Tachycardia Current Visit: Yes Status: Acute Assessment & Plan: -Most likely secondary to infection -Continue IVF Code(s): R00.0 - TACHYCARDIA, UNSPECIFIED I spent 45 minutes [id number] with the patient on the day of discharge performing discharge exam, discussing hospital stay and discharge instructions with patient & caregivers, preparation of discharge records, prescriptions & referral forms and addressing any questions/concerns the patient had as documented above. - Vitals & Intake/Output Vital Signs: Vital Signs Temperature 97.1 F 03/01/23 11:33 Pulse Rate 99 H 03/01/23 11:33 Respiratory Rate 17 03/01/23 11:33 Blood Pressure 156/83 03/01/23 11:33 O2 Sat by Pulse Oximetry 99 03/01/23 11:33 Intake & Output: Intake & Output 02/27/23 02/28/23 03/01/23 03/02/23 11:59 11:59 11:59 11:59 Intake Total 3705 2560 Balance 3705 2560 Weight 163.3 kg - Lab Result Diagrams: 03/01/23 04:31 03/01/23 09:26 Lab Results-Last 24 Hrs: Lab Results-Last 24 Hours 02/28/23 03/01/23 03/01/23 Range/Units 12:13 04:31 04:31 WBC 5.8 (4.0-10.5) x10^3/uL RBC 4.53 (4.1-5.4) x10^6/uL Hgb 9.1 L (12.0-16.0) g/dL Hct 30.8 L (35-47) % MCV 68.0 L (78-100) fL MCH 20.1 L (26-32) pg MCHC 29.5 L (32-36) g/dL RDW 18.1 H (11.5-14.0) % Plt Count 289 (150-450) x10^3/uL MPV 10.1 (7.5-11.0) fL Sodium 139 (137-145) mmol/L Potassium 3.3 L (3.5-5.1) mmol/L Chloride 104 (98-107) mmol/L Carbon Dioxide 26 (22-30) mmol/L Anion Gap 13.3 (5-15) MEQ/L BUN 6 L (7-17) mg/dL Creatinine 0.63 (0.52-1.04) mg/dL Estimated GFR > 60.0 ML/MIN Glucose 109 H (74-106) mg/dL Calcium 8.3 L (8.4-10.2) mg/dL Total Bilirubin 0.30 (0.2-1.3) mg/dL AST 22 (14-36) U/L ALT 18 (0-35) U/L Alkaline Phosphatase 56 (38-126) U/L Serum Total Protein 7.6 (6.3-8.2) g/dL Albumin 3.9 (3.5-5.0) g/dL Group A Strep Antibody NOT DETECTED (NEGATIVE) 03/01/23 Range/Units 09:26 WBC (4.0-10.5) x10^3/uL RBC (4.1-5.4) x10^6/uL Hgb (12.0-16.0) g/dL Hct (35-47) % MCV (78-100) fL MCH (26-32) pg MCHC (32-36) g/dL RDW (11.5-14.0) % Plt Count (150-450) x10^3/uL MPV (7.5-11.0) fL Sodium (137-145) mmol/L Potassium 3.5 (3.5-5.1) mmol/L Chloride (98-107) mmol/L Carbon Dioxide (22-30) mmol/L Anion Gap (5-15) MEQ/L BUN (7-17) mg/dL Creatinine (0.52-1.04) mg/dL Estimated GFR ML/MIN Glucose (74-106) mg/dL Calcium (8.4-10.2) mg/dL Total Bilirubin (0.2-1.3) mg/dL AST (14-36) U/L ALT (0-35) U/L Alkaline Phosphatase (38-126) U/L Serum Total Protein (6.3-8.2) g/dL Albumin (3.5-5.0) g/dL Group A Strep Antibody (NEGATIVE) Micro Results-Entire Visit: Microbiology 02/27/23 07:39 Blood Culture - Preliminary Blood 02/27/23 07:45 Blood Culture - Preliminary Blood 02/28/23 Unknown Throat Culture - Preliminary Throat ORGANISMS ISOLATED ARE CONSISTENT WITH NORMAL DUNCAN LIGHT GROWTH, NO PREDOMINANT ORGANISM 02/27/23 07:14 Urine Culture - Final Clean Catch Midstream MIXED DUNCAN; 3 OR MORE TYPES. NO PREDOMINANT ORGANISM. NO FURTHER WORKUP. PLEASE RESUBMIT IF CLINICALLY INDICATED. 02/28/23 Unknown Stool Culture Result 1 - Final Stool Not Reportable Stool Culture Result 2 - Final Not Reportable Stool Culture Result 3 - Final Not Reportable Stool Culture Result 4 - Final Not Reportable Stool Culture Organism Suscept - Final Not Reportable Campylobacter Result 1 - Final Not Reportable Campylobacter Result 2 - Final Not Reportable Campylobactor Result 3 - Final Not Reportable Campylobacter Result 4 - Final Not Reportable Campylobactor Susceptibility - Final Not Reportable Discharge Exam General Appearance: no apparent distress Neurologic Exam: alert, oriented x 3, cooperative Eye Exam: PERRL, EOM palsy/anisocoria Ears, Nose, Throat Exam: pharyngeal erythema, tonsillar exudate Neck Exam: normal inspection Respiratory Exam: normal breath sounds, lungs clear Cardiovascular Exam: regular rate/rhythm, normal heart sounds Gastrointestinal/Abdomen Exam: soft, normal bowel sounds Pelvic Exam: deferred Rectal Exam: deferred Back Exam: normal inspection Extremity Exam: normal inspection Skin Exam: pale Final Diagnosis/Problem List - Final Discharge Diagnosis/Problem (1) UTI (urinary tract infection) Current Visit: Yes Status: Resolved Code(s): N39.0 - URINARY TRACT INFECTION, SITE NOT SPECIFIED (2) Fever Current Visit: Yes Status: Resolved Code(s): R50.9 - FEVER, UNSPECIFIED (3) Microcytic anemia Current Visit: Yes Status: Chronic Code(s): D50.9 - IRON DEFICIENCY ANEMIA, UNSPECIFIED (4) Pyelonephritis Current Visit: Yes Status: Resolved Code(s): N12 - TUBULO-INTERSTITIAL NEPHRITIS, NOT SPCF ACUTE OR CHRONIC (5) Sore throat Current Visit: Yes Status: Acute Code(s): J02.9 - ACUTE PHARYNGITIS, UNSPECIFIED (6) Diarrhea Current Visit: Yes Status: Chronic Code(s): R19.7 - DIARRHEA, UNSPECIFIED (7) Tachycardia Current Visit: Yes Status: Resolved Code(s): R00.0 - TACHYCARDIA, UNSPECIFIED - Discharge Prescriptions: New Ferrous Sulfate 325 mg [Feosol 325 mg] 325 mg PO DAILY #30 tablet Additional Instructions: Follow up with ID (Dr. Garnica) if symptoms persist Follow up with: ERIN MINA NP [Primary Care Provider] - 03/07/23 9:00 am FELICITA YUSUF MD [NON-STAFF PHY W/O PRIVILEGES] - AURELIANO GARNICA [NON-STAFF PHY W/O PRIVILEGES] -
== END 2023-03-01 13:20 | disposition home or self-care (01) ==
LOC: ED 06:48 → MED SURG 09:35
PROVIDERS: ADMIT Internal Medicine; ATTEND Internal Medicine
DX: N39.0 Urinary tract infection, site not specified (principal); R50.9 Fever, unspecified; D50.9 Iron deficiency anemia, unspecified; N12 Tubulo-interstitial nephritis, not specified as acute or chronic; J02.9 Acute pharyngitis, unspecified; R19.7 Diarrhea, unspecified; R00.0 Tachycardia, unspecified; Z20.828 Contact with and (suspected) exposure to other viral communicable diseases
CPT/HCPCS: 0241U; 36000; 36415; 74176; 80053; 81001; 81025; 82607; 82728; 83540; 83550; 84132; 85025; 85027; 86308; 87040; 87070; 87086; 87651; 94760; 96360; 96365; 99285; Q3014; 93268; G0378; J0696; J1650; J1956; J2916; A9270-GY

== ENCOUNTER 2024-01-16 03:43 | Emergency (ER) | payer OTHER ==
--- NOTE | 2024-01-16 04:09 | ERPHSYRPT ---
- History of Present Illness Time Seen by Provider: 01/16/24 04:06 Source: patient Physician History: 23-year-old female presents to our ED for evaluation of a sore throat body aches fever. Patient denies urinary symptomology. We advised a urinalysis but patient declined. Patient symptoms have been ongoing for 1 to 2 days. Patient reports that her significant other had similar symptoms which are now improving. Patient vomited at home. No vomiting now she declined Zofran. Patient declin ed Tylenol and Motrin. Patient states she has had strep throat in the past. Skin no rash. Patient voices no other complaints or concerns at this time. Portions of this note were created with voice recognition technology. There may be grammatical, spelling, punctuation or sound alike errors Timing/Duration: today Severity: moderate Modifying Factors: Improves With: nothing Associated Symptoms: denies symptoms Allergies/Adverse Reactions: No Known Drug Allergies Allergy (Verified 01/16/24 04:13) Home Medications: buPROPion HCL [Bupropion Xl] 300 mg PO DAILY 01/16/24 [History] Hx Tetanus, Diphtheria Vaccination/Date Given: No Hx Influenza Vaccination/Date Given: No Hx Pneumococcal Vaccination/Date Given: No - Review of Systems Constitutional: No Symptoms, No Fever, No Chills Eyes: No Symptoms Ears, Nose, & Throat: No Symptoms Respiratory: No Symptoms, No Cough, No Dyspnea Cardiac: No Symptoms, No Chest Pain, No Edema, No Syncope Abdominal/Gastrointestinal: No Symptoms, No Abdominal Pain, No Nausea, No Vomiting, No Diarrhea Genitourinary Symptoms: No Symptoms, No Dysuria Musculoskeletal: No Symptoms, No Back Pain, No Neck Pain Skin: No Symptoms, No Rash Neurological: No Symptoms, No Dizziness, No Focal Weakness, No Sensory Changes Psychological: No Symptoms Endocrine: No Symptoms Hematologic/Lymphatic: No Symptoms Immunological/Allergic: No Symptoms All Other Systems: Reviewed and Negative - Past Medical History Pertinent Past Medical History: Yes Neurological History: No Pertinent History ENT History: No Pertinent History Cardiac History: No Pertinent History Respiratory History: No Pertinent History Endocrine Medical History: No Pertinent History Musculoskeletal History: No Pertinent History GI Medical History: No Pertinent History History: No Pertinent History Psycho-Social History: Depression Female Reproductive Disorders: No Pertinent History - Past Surgical History Past Surgical History: Yes Neuro Surgical History: No Pertinent History Cardiac: No Pertinent History Respiratory: No Pertinent History Gastrointestinal: No Pertinent History Genitourinary: No Pertinent History Musculoskeletal: No Pertinent History Female Surgical History: Section - Female History 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 - Social History Smoking Status: Never smoker How long have you smoked: 1 year Exposure to second hand smoke: No Drug Use: none Patient Lives Alone: No - Nursing Vital Signs Nursing Vital Signs: Initial Vital Signs Temperature 100.4 F 01/16/24 03:59 Pulse Rate 124 H 01/16/24 03:59 Respiratory Rate 18 01/16/24 03:59 Blood Pressure 149/96 01/16/24 03:59 O2 Sat by Pulse Oximetry 97 01/16/24 03:59 Pain Scale Pain Intensity 8 - Physical Exam General Appearance: no apparent distress, alert Eye Exam: PERRL/EOMI, eyes nml inspection Ears, Nose, Throat Exam: normal ENT inspection, TMs normal, pharynx normal, moist mucous membranes, other (Bilaterally enlarged tonsils. No obvious exudate) Neck Exam: normal inspection, non-tender, supple, full range of motion Respiratory Exam: normal breath sounds, lungs clear, airway intact, No respiratory distress Cardiovascular Exam: regular rate/rhythm, normal heart sounds, normal peripheral pulses Gastrointestinal/Abdomen Exam: soft, normal bowel sounds, No tenderness, No mass Back Exam: normal inspection, normal range of motion, No CVA tenderness, No vertebral tenderness Extremity Exam: normal inspection, normal range of motion, pelvis stable Neurologic Exam: alert, oriented x 3, cooperative, normal mood/affect, sensation nml, No motor deficits Skin Exam: normal color, warm, dry, No rash Lymphatic Exam: No adenopathy SpO2 Interpretation: normal O2 Delivery: Room Air - Course Nursing assessment & vital signs reviewed: Yes Ordered Tests: Medication Summary Discontinued Medications Generic Name Dose Route Start Last Admin Trade Name Freq PRN Reason Stop Dose Admin Acetaminophen 1,000 mg 01/16/24 05:04 Acetaminophen 500 Mg Tablet PO 01/16/24 05:05 STAT STA Lab/Rad Data: Laboratory Results 01/16/24 01/16/24 Range/Units 04:16 04:16 Influenza Type A Ag NEGATIVE (NEGATIVE) Influenza Type B Ag NEGATIVE (NEGATIVE) RSV (PCR) NEGATIVE (NEGATIVE) SARS-CoV-2 (PCR) POSITIVE A (NEGATIVE) Group A Strep Antibody NOT DETECTED (NEGATIVE) - Progress Progress: improved Progress Note: 23-year-old female presents to our ED with viral-like syndrome drome. Physical exam nonremarkable. Patient initially declined Tylenol but later requested it. Workup reveals COVID a positive. Will discharge home. Patient is aware of the importance of quarantine. She voices no other complaints or concerns at this time. Portions of this note were created with voice recognition technology. There may be grammatical, spelling, punctuation or sound alike errors Complexity problem addressed is moderate acute complicated. No critical care time. Complex of data reviewed and analyzed is moderate. Test ordered test reviewed results analyzed and correlated clinically with history and physical exam. Risk of complication and or risk of morbidity/mortality patient management is low. Vital stable. Time spent to discharge patient approximately 10 minutes. Plan of care established for shared decision making. No social determinants of health present impede follow-up. Portions of this note were created with voice recognition technology. There may be grammatical, spelling, punctuation or sound alike errors 01/16/24 05:07 Counseled pt/family regarding: lab results, diagnosis, need for follow-up - Departure Departure Disposition: Home Clinical Impression: COVID-19 Condition: Stable Critical Care Time: No Referrals: ERIN MINA NP [Primary Care Provider] - Follow up/PCP as directed Additional Instructions: Discharge/Care Plan VIVIANEKAREL CHAIDEZ was seen on 01/16/24 in the Emergency Room. The patient was counseled regarding Diagnosis,Lab results, Imaging studies, need for follow up and when to return to the Emergency Room. Prescriptions given: Discharge Note I have spoken with the patient and/or caregivers. I have explained the patient's condition, diagnosis and treatment plan based on the information available to me at this time. I have answered the patient's and/or caregiver's questions and addressed any concerns. The patient and/or caregivers have as good understanding of the patient's diagnosis, condition and treatment plan as can be expected at this point. The vital signs have been stable. The patient's condition is stable and appropriate for discharge from the emergency department. The patient will pursue further outpatient evaluation with the primary care physician or other designated or consulting physician as outlined in the discharge instructions. The patient and/or caregivers are agreeable to this plan of care and follow-up instructions have been explained in detail. The patient and/or caregivers have received these instruction. The patient/and or caregivers are aware that any significant change in condition or worsening of symptoms should prompt an immediate return to this or the closest emergency department or call 911.
[2024-01-16 04:14] VITALS: RESP 18; TEMP 100.4
[2024-01-16 04:56] LABS: INFLUENZA A NEGATIVE (NEGATIVE); INFLUENZA B NEGATIVE (NEGATIVE); RESPIRATORY SYNCTIAL VIRUS NEGATIVE (NEGATIVE)
[2024-01-16 04:58] LABS: SARS-CoV-2 Xpert Express POSITIVE (NEGATIVE)
[2024-01-16] MEDS ORDERED: TYLENOL EXTRA STRENGTH 500 MG ONE (05:07)
[2024-01-16] MEDS: TYLENOL EXTRA STRENGTH 500 MG PO STA (05:09)
[2024-01-16 05:12] VITALS: BP 151/92; PULSE 105; O2SAT 98
== END 2024-01-16 05:17 | disposition home or self-care (01) ==
LOC: ED 03:43
DX: U07.1 COVID-19 (principal); J02.9 Acute pharyngitis, unspecified; M79.10 Myalgia, unspecified site; R50.9 Fever, unspecified; Z79.899 Other long term (current) drug therapy
CPT/HCPCS: 0241U; 87651; 99282; A9270-GY

== ENCOUNTER 2024-03-01 03:56 | Emergency (ER) | payer OTHER ==
[2024-03-01 04:44] VITALS: TEMP 97.8
--- NOTE | 2024-03-01 04:44 | ERPHSYRPT ---
- History of Present Illness Time Seen by Provider: 03/01/24 04:15 Historian: patient, family Exam Limitations: no limitations Patient Subjective Stated Complaint: c/o of bloody stools Triage Nursing Assessment: Pt brought to ED by with c/o of bloody stools. Last BM was today at 0330 and stated she had 9/10 pain when bearing down. denies having pain at this time. Pt stated "I have had this issue here in there for the past two years, but it started again today." states stool is bright red. Bowel sounds present in all four quads, tender with palpitation in the lower quads, hypertensive, skin w/n/d, gait steady, pulses normal, pt doesn ;t appear to be in any distress at this time. Physician History: This is a morbidly obese 23-year-old white female patient of nurse practitioner Jag who presents with recurrent rectal bleeding and pain as well as associated bilateral quadrant abdominal pain that began yesterday evening and reoccurred this morning at 330. She had similar episode on 01/07/2023 and was seen in our emergency department at that time. She was given instructions at that time to follow-up with yeast pusher for further evaluation and management including colonoscopy. She did not follow-up as instructed. She had no symptoms until last evening. Patient denies liver disease. Patient has no known history of inflammatory bowel disease such as Crohn's disease or ulcerative colitis. She has no bleeding or clotting disorders. She currently has some mild bilateral lower quadrant achiness but no anal or rectal pain. She denies recent instrumentation into the anus or anal sex Timing/Duration: yesterday Quality: sharpness Abdominal Pain Onset Location: RLQ, LLQ Pain Radiation: no radiation Severity of Pain-Max: moderate Severity of Pain-Current: none Associated Symptoms: No chest pain, No fever/chills Previous symptoms: same symptoms as today, no recent treatment Allergies/Adverse Reactions: No Known Drug Allergies Allergy (Verified 03/01/24 04:15) Home Medications: buPROPion HCL [Bupropion Xl] 300 mg PO DAILY 01/16/24 [History] Hx Tetanus, Diphtheria Vaccination/Date Given: No Hx Influenza Vaccination/Date Given: No Hx Pneumococcal Vaccination/Date Given: No Travel Risk - International Travel Have you traveled outside of the country in past 3 weeks: No - Emerging Infectious Disease Are you exhibiting symptoms associated with any current EIDs: No - Review of Systems Constitutional: No Symptoms Eyes: No Symptoms Ears, Nose, & Throat: No Symptoms Respiratory: No Symptoms Cardiac: No Symptoms Abdominal/Gastrointestinal: Abdominal Pain (Bilateral lower quadrant abdominal pain), Hematochezia (With bowel movement x 2 episodes since 7 PM on 02/29/2024) Genitourinary Symptoms: No Symptoms Musculoskeletal: No Symptoms Skin: No Symptoms Neurological: No Symptoms Psychological: No Symptoms Endocrine: No Symptoms Hematologic/Lymphatic: No Symptoms Immunological/Allergic: No Symptoms All Other Systems: Reviewed and Negative - Past Medical History Pertinent Past Medical History: Yes Neurological History: No Pertinent History ENT History: No Pertinent History Cardiac History: No Pertinent History Respiratory History: No Pertinent History Endocrine Medical History: No Pertinent History Musculoskeletal History: No Pertinent History GI Medical History: GI Bleed History: No Pertinent History Psycho-Social History: Depression Female Reproductive Disorders: No Pertinent History - Past Surgical History Past Surgical History: Yes Neuro Surgical History: No Pertinent History Cardiac: No Pertinent History Respiratory: No Pertinent History Gastrointestinal: No Pertinent History Genitourinary: No Pertinent History Musculoskeletal: No Pertinent History Female Surgical History: Section Other Surgical History: skin tag removed - Female History Hx Last Menstrual Period: 02/06/2024 Hx Now: No - Social History Smoking Status: Never smoker How long have you smoked: 1 year Exposure to second hand smoke: No Drug Use: none Patient Lives Alone: No - Social Determinants of Health Will the patient participate in the screening: Yes Do you worry about a steady place to live?: No Do you have any problems with any of the following?: No known problems In the past 12 months,have you had to go without utilities?: No Transportation Issues: No Has anyone in your support network made you feel unsafe?: No Have you or anyone in your house had to go without enough: No - Nursing Vital Signs Nursing Vital Signs: Initial Vital Signs Temperature 97.8 F 03/01/24 03:59 Pulse Rate 97 H 03/01/24 03:59 Respiratory Rate 16 03/01/24 03:59 Blood Pressure 167/98 03/01/24 03:59 O2 Sat by Pulse Oximetry 99 03/01/24 03:59 Pain Scale Pain Intensity 0 - Physical Exam General Appearance: no apparent distress, alert, anxiety, obese Eye Exam: PERRL/EOMI, eyes nml inspection Ears, Nose, Throat Exam: normal ENT inspection, moist mucous membranes Neck Exam: normal inspection, non-tender, supple, full range of motion Respiratory Exam: airway intact, No chest tenderness, No respiratory distress Gastrointestinal/Abdomen Exam: soft, normal bowel sounds, tenderness (Mild B LQ tenderness to palpation), No guarding, No rebound Pelvic Exam: not done Rectal Exam: hemorrhoids (External hemorrhoids but not thrombosed. No significant tenderness to palpation of the perianal area. No obvious anal fissure) Extremity Exam: normal inspection, normal range of motion, pelvis stable Neurologic Exam: alert, oriented x 3, cooperative, nml cerebellar function, nml station & gait, sensation nml Skin Exam: normal color, warm, dry Lymphatic Exam: No adenopathy SpO2 Interpretation: normal SpO2: 98 O2 Delivery: Room Air - Course Nursing assessment & vital signs reviewed: Yes Ordered Tests: Active Orders 24 hr Category Date Time Status ABDOMEN AND PELVIS W/0 CONTRAS [CT] Stat Exams 03/01/24 04:36 Completed CBC W DIFF Stat Lab 03/01/24 05:16 Completed CMP Stat Lab 03/01/24 05:16 Completed CULTURE,URINE Stat Lab 03/01/24 04:40 Received HCG QUALITATIVE, SERUM Stat Lab 03/01/24 05:16 Completed PROTIME WITH INR Stat Lab 03/01/24 05:16 Completed UA W/RFX UR CULTURE Stat Lab 03/01/24 04:40 Completed Medication Summary Discontinued Medications Generic Name Dose Route Start Last Admin Trade Name [place] PRN Reason Stop Dose Admin Levofloxacin 500 mg 03/01/24 05:26 03/01/24 05:32 Levofloxacin 500 Mg Tablet PO 03/01/24 05:27 500 mg STAT ONE Administration Levofloxacin Confirm 03/01/24 05:31 Levofloxacin 500 Mg Tablet Administered 03/01/24 05:32 Dose 500 mg .ROUTE .STK-MED ONE Lab/Rad Data: Laboratory Result Diagrams 03/01/24 05:16 03/01/24 05:16 Laboratory Results 03/01/24 03/01/24 03/01/24 Range/Units 05:16 05:16 05:16 WBC (3.98-10.04) x10^3/uL RBC (3.93-5.22) x10^6/uL Hgb (11.2-15.7) g/dL Hct (34.1-44.9) % MCV (79.4-94.8) fL MCH (25.6-32.2) pg MCHC (32.2-35.5) g/dL RDW (11.7-14.4) % Plt Count (182-369) x10^3/uL MPV (9.4-12.3) fL Gran % (34.0-71.1) % Immature Gran % (Auto) (0.001-0.429) % Nucleat RBC Rel Count (0.00-0.2) % Eos # (Auto) (0.04-0.36) x10^3/uL Immature Gran # (Auto) (0.001-0.031) x10^3u/L Absolute Lymphs (auto) (1.18-3.74) x10^3/uL Absolute Monos (auto) (0.24-0.86) x10^3/uL Absolute Nucleated RBC (0.00-0.012) x10^3u/L Lymphocytes % (19.3-51.7) % Monocytes % (4.7-12.5) % Eosinophils % (0.7-5.8) % Basophils % (0.1-1.2) % Absolute Granulocytes (1.56-6.13) x10^3/uL Basophils # (0.01-0.08) x10^3/uL PT 10.5 (9.4-12.5) SECONDS INR 0.96 (0.8-3.0) Sodium 136 (135-145) mmol/L Potassium 3.6 (3.5-5.1) mmol/L Chloride 99 (98-107) mmol/L Carbon Dioxide 29 (22-30) mmol/L Anion Gap 12.2 (5-15) MEQ/L BUN 7 (7-17) mg/dL Creatinine 0.71 (0.52-1.04) mg/dL Estimated GFR 122.5 ML/MIN Glucose 122 H (74-106) mg/dL Calcium 9.4 (8.4-10.2) mg/dL Total Bilirubin 0.30 (0.2-1.3) mg/dL AST 37 H (14-36) U/L ALT 28 (0-35) U/L Alkaline Phosphatase 68 (38-126) U/L Serum Total Protein 7.4 (6.3-8.2) g/dL Albumin 4.0 (3.5-5.0) g/dL Serum HCG, Qual NEGATIVE (NEGATIVE) Urine Color (Yellow) Urine Appearance (Clear) Urine pH (4.6-8.0) Ur Specific [place] (1.005-1.030) Urine Protein (Negative) Urine Glucose (UA) (Negative) mg/dL Urine Ketones (Negative) Urine Blood (Negative) Urine Nitrite (Negative) Urine Bilirubin (Negative) Urine Urobilinogen (0.2) mg/dL Ur Leukocyte Esterase (Negative) U Hyaline Cast (Auto) (0-2) /LPF Urine Microscopic RBC (0-5) /HPF Urine Microscopic WBC (0-5) /HPF Ur Epithelial Cells (None Seen) /HPF Urine Bacteria (None Seen) /HPF Urine Culture Reflexed (NO) 03/01/24 03/01/24 Range/Units 05:16 04:40 WBC 9.2 (3.98-10.04) x10^3/uL RBC 4.65 (3.93-5.22) x10^6/uL Hgb 9.3 L (11.2-15.7) g/dL Hct 32.6 L (34.1-44.9) % MCV 70.1 L (79.4-94.8) fL MCH 20.0 L (25.6-32.2) pg MCHC 28.5 L (32.2-35.5) g/dL RDW 19.7 H (11.7-14.4) % Plt Count 335 (182-369) x10^3/uL MPV 10.1 (9.4-12.3) fL Gran % 65.5 (34.0-71.1) % Immature Gran % (Auto) 0.5 H (0.001-0.429) % Nucleat RBC Rel Count 0.0 (0.00-0.2) % Eos # (Auto) 0.21 (0.04-0.36) x10^3/uL Immature Gran # (Auto) 0.05 H (0.001-0.031) x10^3u/L Absolute Lymphs (auto) 2.45 (1.18-3.74) x10^3/uL Absolute Monos (auto) 0.42 (0.24-0.86) x10^3/uL Absolute Nucleated RBC 0.00 (0.00-0.012) x10^3u/L Lymphocytes % 26.6 (19.3-51.7) % Monocytes % 4.6 L (4.7-12.5) % Eosinophils % 2.3 (0.7-5.8) % Basophils % 0.5 (0.1-1.2) % Absolute Granulocytes 6.03 (1.56-6.13) x10^3/uL Basophils # 0.05 (0.01-0.08) x10^3/uL PT (9.4-12.5) SECONDS INR (0.8-3.0) Sodium (135-145) mmol/L Potassium (3.5-5.1) mmol/L Chloride (98-107) mmol/L Carbon Dioxide (22-30) mmol/L Anion Gap (5-15) MEQ/L BUN (7-17) mg/dL Creatinine (0.52-1.04) mg/dL Estimated GFR ML/MIN Glucose (74-106) mg/dL Calcium (8.4-10.2) mg/dL Total Bilirubin (0.2-1.3) mg/dL AST (14-36) U/L ALT (0-35) U/L Alkaline Phosphatase (38-126) U/L Serum Total Protein (6.3-8.2) g/dL Albumin (3.5-5.0) g/dL Serum HCG, Qual (NEGATIVE) Urine Color Yellow (Yellow) Urine Appearance Cloudy A (Clear) Urine pH 6.0 (4.6-8.0) Ur Specific [place] 1.020 (1.005-1.030) Urine Protein Trace A (Negative) Urine Glucose (UA) Negative (Negative) mg/dL Urine Ketones Trace A (Negative) Urine Blood Small A (Negative) Urine Nitrite Negative (Negative) Urine Bilirubin Negative (Negative) Urine Urobilinogen 0.2 (0.2) mg/dL Ur Leukocyte Esterase Moderate A (Negative) U Hyaline Cast (Auto) NONE SEEN (0-2) /LPF Urine Microscopic RBC 6-10 A (0-5) /HPF Urine Microscopic WBC >100 A (0-5) /HPF Ur Epithelial Cells Moderate A (None Seen) /HPF Urine Bacteria Moderate A (None Seen) /HPF Urine Culture Reflexed YES (NO) - Progress Progress: unchanged Progress Note: 03/01/24 04:46 My medical decision making and the assignment of moderate complexity to this patient's medical issue today is based on review of the patient's past medical history, review of the patient's medication list, review the patient drug allergy list, history present illness and physical findings on examination. The workup in this patient includes CBC, CMP, PT/INR, CT scan of the abdomen pelvis without contrast. Differential diagnosis includes but is not limited to thrombosed external hemorrhoid, internal hemorrhoid, inflammatory bowel disease, anal fissure 03/01/24 05:44 Interpreted the patient's laboratory data results. Based on the laboratory data results, the patient does have a significant urinary tract infection but no other acute, emergent medical issue. CT scan of the abdomen pelvis without contrast was interpreted by the radiologist and I reviewed the impression. The patient states compared to similar study dated 01/08/2023 there are no significant pathologic changes noted. There are no katie pathology noted at the rectum. Counseled pt/family regarding: lab results, diagnosis, need for follow-up, rad results Medical Desision Making - Independent Historian Additional History obtained from: Spouse - Diagnostic Testing Diagnostic test were ordered, analyzed, and reviewed by me: Yes Radiological Interpretation: Reviewed by me, Teleradiologist Report - Risk of complications The pt has a mod risk of morbidity or mortality based on: Need for prescription drug management - Departure Departure Disposition: Home Clinical Impression: Abdominal pain, UTI (urinary tract infection), Anemia, Rectal bleeding, Rectal or anal pain Condition: Stable Critical Care Time: No Referrals: ERIN MINA NP [Primary Care Provider] - Follow up/PCP as directed Additional Instructions: Drink plenty of clear liquids. Take your antibiotics and other medications as prescribed. Call your primary care provider in the morning of 03/03/2024 to make arrangements for a follow-up appointment to be seen in the next 3 to 5 days and for referral to gastroenterology. The following measures to help improve/resolve your anorectal pain which includes increasing your fiber in your diet. Take [id number] stool softeners and follow the directions on the packaging. Sitz bath with warm soapy water or Epsom salts 2-3 times a day. Prescriptions: Ciprofloxacin [Cipro 500 MG] 500 mg PO BID #14 tablet
[2024-03-01 04:59] LABS: Appearance Cloudy (Clear); Bacteria Moderate /HPF (None Seen); Bilirubin Negative (Negative); Blood Small (Negative); Epithelial Cells Moderate /HPF (None Seen); Glucose, Urine Negative (Negative); Hyaline Casts NONE SEEN /LPF (0-2); Ketones Trace (Negative); Leukocyte Esterase Moderate (Negative); Nitrite Negative (Negative); Protein,Urine Dip Trace (Negative); Urobilinogen 0.2 mg/dL (0.2); WBC >100 /HPF (0-5)
[2024-03-01 05:00] LABS: ADD URINE CULTURE? YES (NO)
[2024-03-01 05:18] LABS: Absolute Neutrophil Ct (ANC) 6.03 x10^3/uL (1.56-6.13); BASOPHIL % 0.5 % (0.1-1.2); Basophil (Absolute #) 0.05 x10^3/uL (0.01-0.08); Eosinophil % 2.3 % (0.7-5.8); Eosinophil (Absolute #) 0.21 x10^3/uL (0.04-0.36); Hematocrit 32.6 % (34.1-44.9); Hemoglobin 9.3 g/dL (11.2-15.7); IMMATURE GRAN # 0.05 x10^3u/L (0.001-0.031); IMMATURE GRAN % 0.5 % (0.001-0.429); Lymphocyte (Absolute #) 2.45 x10^3/uL (1.18-3.74); Lymphocytes % 26.6 % (19.3-51.7); Mean Cell Volume 70.1 fL (79.4-94.8); Mean Corpuscular Hgb Concent. 28.5 g/dL (32.2-35.5); Mean Platelet Volume 10.1 fL (9.4-12.3); Monocyte (Absolute #) 0.42 x10^3/uL (0.24-0.86); Monocytes % 4.6 % (4.7-12.5); Neutrophil % 65.5 % (34.0-71.1); Platelet Count 335 x10^3/uL (182-369); Red Blood Count 4.65 x10^6/uL (3.93-5.22); Red Cell Distribution Width 19.7 % (11.7-14.4); White Blood Count 9.2 x10^3/uL (3.98-10.04)
[2024-03-01 05:23] VITALS: BP 135/89; PULSE 94; RESP 17
[2024-03-01 05:31] LABS: ANION GAP 12.2 MEQ/L (5-15); BILIRUBIN,TOTAL 0.3 mg/dL (0.2-1.3); Calcium 9.4 mg/dL (8.4-10.2); Creatinine 1 0.71 mg/dL (0.52-1.04); EST GLOMERULAR FILTRATION RATE 122.5 ML/MIN; INR 0.96 (0.8-3.0); PROTIME 10.5 SECONDS (9.4-12.5); Potassium 3.6 mmol/L (3.5-5.1); Total Protein 7.4 g/dL (6.3-8.2)
[2024-03-01] MEDS ORDERED: Levofloxacin 500 MG Tablet ONE (05:31)
[2024-03-01] MEDS: Levofloxacin 500 MG Tablet PO ONE (05:32)
--- NOTE | 2024-03-01 05:36 | XRAY ---
CLINICAL HISTORY: BLQ ABD pain; rectal bleeding COMPARISON: Comparison is made with the 01/08/2023 CT study. TECHNIQUE: Non-contrast CT of the abdomen and pelvis was performed, with the following protocol: axial images, and reconstructed coronal and sagittal images. No intravenous contrast was administered. One of the following dose reduction techniques was utilized for this exam: Automated exposure control, adjustment of the mA and/or kV according to patient size, and use of iterative reconstruction. FINDINGS: Diffuse fatty infiltration of the liver is noted. The liver is enlarged in size measuring approximately 22 cm in the midclavicular line. No definite evidence of intrahepatic biliary dilatation. No discrete focal hepatic lesion. The spleen is mildly enlarged measuring 15.8 cm in craniocaudal dimension. The gallbladder is partially contracted. Pancreas and bilateral adrenal glands appear unremarkable. Both kidneys are normal in size and shape. No renal calculus or obstructive uropathy. The urinary bladder is suboptimally distended. No definite intravesical abnormality. Uterus and bilateral adnexa appear unremarkable. The stomach is normally distended. Visualized large and small bowel loops appear grossly unremarkable. No definite evidence of colitis. No signs of appendicitis. No ascites or pneumoperitoneum. A few prominent lymph nodes are identified in the right iliac fossa, the largest measuring approximately 9 mm in short axis. No definite evidence of acute appendicitis. Pelvic and abdominal vasculature appear unremarkable. Heart is normal in size. No pericardial effusion. No significant abnormality in the visualized lung bases. No acute bony abnormality. IMPRESSION: 1. In comparison with the previous study: no significant pathologic changes were noted. 2. No katie pathologies were noted at the rectum. 3. Hepatosplenomegaly with hepatic steatosis. 4. Few non-specific mesenteric lymph nodes in the right iliac fossa. Electronically Signed by: New Galvez MD. (03/01/2024 05:32:58 EDT)
[2024-03-01 05:39] LABS: HCG SERUM TEST NEGATIVE (NEGATIVE)
[2024-03-01 05:48] LABS: Slide Review 1 YES
[2024-03-01 05:51] VITALS: O2SAT 98
== END 2024-03-01 06:02 | disposition home or self-care (01) ==
LOC: ED 03:56
DX: N39.0 Urinary tract infection, site not specified (principal); D64.9 Anemia, unspecified; K62.5 Hemorrhage of anus and rectum; K62.89 Other specified diseases of anus and rectum; R10.31 Right lower quadrant pain; R10.32 Left lower quadrant pain; Z79.899 Other long term (current) drug therapy
CPT/HCPCS: 36415; 74176; 80053; 81001; 84703; 85025; 85610; 87077; 87086; 87186; 99283; A9270-GY

== ENCOUNTER 2024-05-12 09:08 | Day surgery (SDC) | payer OTHER ==
--- NOTE | 2024-05-12 07:56 | HP ---
HISTORY OF PRESENT ILLNESS: A 23-year-old with some rectal bleeding, bright and dark since 2022. No pain currently. She had some pain in the past with no pain currently. Family history of a great aunt that had colon cancer. Patient denies any prior colonoscopy PAST MEDICAL HISTORY: Has had a history of anemia and depression in the past. PAST SURGICAL HISTORY: Had a section in the past. FAMILY HISTORY: Diabetes, heart disease, renal disease, as well as a great aunt had colon cancer. SOCIAL HISTORY: Patient vapes. Denies alcohol abuse. MEDICATIONS: Iron sulfate. ALLERGIES: No known drug allergies. REVIEW OF SYSTEMS: Twelve systems reviewed. Pertinent for significant obesity and history of depression, and anemia. Other systems negative per preadmission questionnaire. PHYSICAL EXAMINATION: GENERAL: Height 5 feet 9 inches. BMI 56. No acute distress. HEENT: Sclerae nonicteric. NECK: No JVD. CHEST: Equal excursion, nonlabored breathing. CARDIOVASCULAR: Regular rate and rhythm. ABDOMEN: Soft. Obese. EXTREMITIES: No cyanosis. NEUROLOGIC: Alert. Moving all extremities symmetrically. PSYCHIATRIC: Appropriate mood and affect. SKIN: Dry. RECTAL: Deferred. IMPRESSION: Rectal bleeding. Recommend colonoscopy. Risks were explained in detail to include, bleeding and infection; risk of bowel injury or perforation; risk of missed or nondiagnosis or incomplete exam possibly requiring barium enema or other studies or procedure or referrals; risk of anesthesia or sedation; risk of bowel prep, but not limited to. Otherwise, continue medications for her anemia and continue medical management for depression. We will proceed with outpatient colonoscopy.
== END 2024-05-12 10:15 | disposition home or self-care (01) ==
LOC: SDC 09:08
PROVIDERS: ATTEND Surgery
DX: Z53.8 Procedure and treatment not carried out for other reasons (principal)

== ENCOUNTER 2025-03-04 20:38 | Emergency (ER) | payer OTHER ==
[2025-03-04 21:02] VITALS: RESP 20; TEMP 95.2
[2025-03-04 21:05] LABS: Glucose, Urine Negative (Negative); Protein,Urine Dip 30 (Negative)
--- NOTE | 2025-03-04 21:08 | ERPHSYRPT ---
- History of Present Illness Time Seen by Provider: 03/04/25 20:40 Source: patient, family Patient Subjective Stated Complaint: pt states that she is 12 weeks and is having abd pain on the right side Triage Nursing Assessment: pt ambulated into the er; pt is axo x3; c/o abd pain; pt states 7/10 pain to RUQ that radiates to RLQ; active bowel sounds in all quads; pt states last BM was 9/10; pt states she has N/V due to ; skin PDW; no respiratory distress present; hypertensive Physician History: This is a 24-year-old female who is 12 weeks with twins (was told several weeks ago by ultrasound) who began having right lateral abdominal pain rating to the flank in the last several hours. Slight nausea without vomiting. Patient has no history of any abdominal or pelvic surgeries. Denies any significant past medical history. Does not smoke, drink or use drugs. No history of gallstones or appendicitis. Denies any vaginal discharge or vaginal bleeding. No foul vaginal odor. No dysuria or hematuria. Patient does note symptoms are worse with urinating. Timing/Duration: today Allergies/Adverse Reactions: No Known Drug Allergies Allergy (Verified 03/04/25 20:42) Home Medications: Ferrous Sulfate 325 mg [Feosol 325 mg] 325 mg PO DAILY 01/26/25 [History] Metformin HCl [Metformin HCl ER] 500 mg PO BID 01/26/25 [History] Rosuvastatin Calcium 10 mg PO DAILY 01/26/25 [History] Labetalol HCl 100 mg [Trandate 100 MG] 100 mg PO BID 03/04/25 [History] Hx Tetanus, Diphtheria Vaccination/Date Given: No Hx Influenza Vaccination/Date Given: No Hx Pneumococcal Vaccination/Date Given: No Travel Risk - International Travel Have you traveled outside of the country in past 3 weeks: No - Emerging Infectious Disease Are you exhibiting symptoms associated with any current EIDs: Yes Symptoms: Abdominal Pain - Review of Systems All Other Systems: Reviewed and Negative (As per HPI otherwise negative) - Past Medical History Pertinent Past Medical History: Yes Neurological History: No Pertinent History ENT History: No Pertinent History Cardiac History: No Pertinent History Respiratory History: No Pertinent History Endocrine Medical History: No Pertinent History Musculoskeletal History: Other GI Medical History: GI Bleed History: No Pertinent History Psycho-Social History: Anxiety, Depression Female Reproductive Disorders: No Pertinent History Other Medical History: SX HX: 12/2021. DEPRESSION, Former smoker- Current vapes, excessive snoring. - Past Surgical History Past Surgical History: Yes Neuro Surgical History: No Pertinent History Cardiac: No Pertinent History Respiratory: No Pertinent History Gastrointestinal: No Pertinent History Genitourinary: No Pertinent History Musculoskeletal: No Pertinent History Female Surgical History: Section Other Surgical History: skin tag removed - Female History Hx Last Menstrual Period: 02/06/2024 Hx Now: Yes Gestational Age: 12 wks - Social History Smoking Status: Former smoker Exposure to second hand smoke: No Drug Use: none - Social Determinants of Health Will the patient participate in the screening: Yes Do you worry about a steady place to live?: No Do you have any problems with any of the following?: No known problems In the past 12 months,have you had to go without utilities?: No Transportation Issues: No Has anyone in your support network made you feel unsafe?: No Have you or anyone in your house had to go w/o enough food: No - Nursing Vital Signs Nursing Vital Signs: Initial Vital Signs Temperature 95.2 F 03/04/25 20:43 Pulse Rate 96 H 03/04/25 20:43 Respiratory Rate 20 03/04/25 20:43 Blood Pressure 155/95 03/04/25 20:43 O2 Sat by Pulse Oximetry 100 03/04/25 20:43 Pain Scale Pain Intensity 7 - Physical Exam SpO2: 100 Comments: 03/04/25 21:06 General: Well-nourished well-developed. No apparent distress. HEENT: Normocephalic atraumatic no obvious facial or neck deformity or injury. Neck: Supple. No deformity or mass noted. CV: RRR NL Perfusion. No edema Resp: No Respiratory distress or adventitious breath sounds Abd: Obese. Bowel signs. Negative Espinosa. Negative McBurney. Palpation right lateral abdomen especially worse in the right lateral aspect of the abdomen with right CVA tenderness to palpation. MSK: No deformity or TTP Neuro: Alert and Bud x4. No gross focal neurologic changes Psych: No SI, HI or grave disability Ordered Tests: Active Orders 24 hr Category Date Time Status CBC W DIFF Stat Lab 03/04/25 21:30 Completed CMP Stat Lab 03/04/25 21:30 Completed CULTURE,URINE Stat Lab 03/04/25 20:40 Received LIPASE Stat Lab 03/04/25 21:30 Completed UA W/RFX UR CULTURE Stat Lab 03/04/25 20:40 Completed UA W/RFX UR CULTURE Stat Lab 03/04/25 21:40 Completed Medication Summary Discontinued Medications Generic Name Dose Route Start Last Admin Trade Name [place] PRN Reason Stop Dose Admin Acetaminophen 1,000 mg 03/04/25 21:03 03/04/25 21:11 Acetaminophen 500 Mg Tablet PO 03/04/25 21:04 1,000 mg STAT STA Administration Ondansetron HCl 4 mg 03/04/25 21:04 03/04/25 21:12 Zofran 4 Mg/Udtablet Orally Disintegrating PO 03/04/25 21:05 4 mg STAT ONE Administration Lab/Rad Data: Laboratory Result Diagrams 03/04/25 21:30 03/04/25 21:30 Laboratory Results 03/04/25 03/04/25 03/04/25 Range/Units 21:40 21:30 21:30 WBC 7.6 (3.98-10.04) x10^3/uL RBC 5.38 H (3.93-5.22) x10^6/uL Hgb 11.0 L (11.2-15.7) g/dL Hct 40.9 (34.1-44.9) % MCV 76.0 L (79.4-94.8) fL MCH 20.4 L (25.6-32.2) pg MCHC 26.9 L (32.2-35.5) g/dL RDW 20.3 H (11.7-14.4) % Plt Count 186 (182-369) x10^3/uL MPV 11.2 (9.4-12.3) fL Gran % 70.9 (34.0-71.1) % Immature Gran % (Auto) 0.1 (0.001-0.429) % Nucleat RBC Rel Count 0.0 (0.00-0.2) % Eos # (Auto) 0.10 (0.04-0.36) x10^3/uL Immature Gran # (Auto) 0.01 (0.001-0.031) x10^3u/L Absolute Lymphs (auto) 1.70 (1.18-3.74) x10^3/uL Absolute Monos (auto) 0.35 (0.24-0.86) x10^3/uL Absolute Nucleated RBC 0.00 (0.00-0.012) x10^3u/L Lymphocytes % 22.4 (19.3-51.7) % Monocytes % 4.6 L (4.7-12.5) % Eosinophils % 1.3 (0.7-5.8) % Basophils % 0.7 (0.1-1.2) % Absolute Granulocytes 5.39 (1.56-6.13) x10^3/uL Basophils # 0.05 (0.01-0.08) x10^3/uL Sodium 134 L (135-145) mmol/L Potassium 4.4 (3.5-5.1) mmol/L Chloride 104 (98-107) mmol/L Carbon Dioxide 21 L (22-30) mmol/L Anion Gap 13.1 (5-15) MEQ/L BUN 6 L (7-17) mg/dL Creatinine 0.48 L (0.52-1.04) mg/dL Estimated GFR 135.6 ML/MIN Glucose 93 (74-106) mg/dL Calcium 9.5 (8.4-10.2) mg/dL Total Bilirubin 0.20 (0.2-1.3) mg/dL AST 41 H (14-36) U/L ALT 23 (0-35) U/L Alkaline Phosphatase 63 (38-126) U/L Serum Total Protein 7.3 (6.3-8.2) g/dL Albumin 4.0 (3.5-5.0) g/dL Lipase 67 (23-300) U/L Urine Color Dark Yellow A (Yellow) Urine Appearance Clear (Clear) Urine pH 5.5 (4.6-8.0) Ur Specific [place] >=1.030 A (1.005-1.030) Urine Protein Trace A (Negative) Urine Glucose (UA) Negative (Negative) mg/dL Urine Ketones Trace A (Negative) Urine Blood Negative (Negative) Urine Nitrite Negative (Negative) Urine Bilirubin Negative (Negative) Urine Urobilinogen 1.0 A (0.2) mg/dL Ur Leukocyte Esterase Negative (Negative) U Hyaline Cast (Auto) NONE SEEN (0-2) /LPF Urine Microscopic RBC 3-5 (0-5) /HPF Urine Microscopic WBC 0-2 (0-5) /HPF Ur Epithelial Cells Rare (None Seen) /HPF Calcium Oxalate Crystal 11-25 A (None Seen) /HPF Urine Bacteria None Seen (None Seen) /HPF Urine Culture Reflexed NO (NO) Slides for Path Review YES 03/04/25 Range/Units 20:40 WBC (3.98-10.04) x10^3/uL RBC (3.93-5.22) x10^6/uL Hgb (11.2-15.7) g/dL Hct (34.1-44.9) % MCV (79.4-94.8) fL MCH (25.6-32.2) pg MCHC (32.2-35.5) g/dL RDW (11.7-14.4) % Plt Count (182-369) x10^3/uL MPV (9.4-12.3) fL Gran % (34.0-71.1) % Immature Gran % (Auto) (0.001-0.429) % Nucleat RBC Rel Count (0.00-0.2) % Eos # (Auto) (0.04-0.36) x10^3/uL Immature Gran # (Auto) (0.001-0.031) x10^3u/L Absolute Lymphs (auto) (1.18-3.74) x10^3/uL Absolute Monos (auto) (0.24-0.86) x10^3/uL Absolute Nucleated RBC (0.00-0.012) x10^3u/L Lymphocytes % (19.3-51.7) % Monocytes % (4.7-12.5) % Eosinophils % (0.7-5.8) % Basophils % (0.1-1.2) % Absolute Granulocytes (1.56-6.13) x10^3/uL Basophils # (0.01-0.08) x10^3/uL Sodium (135-145) mmol/L Potassium (3.5-5.1) mmol/L Chloride (98-107) mmol/L Carbon Dioxide (22-30) mmol/L Anion Gap (5-15) MEQ/L BUN (7-17) mg/dL Creatinine (0.52-1.04) mg/dL Estimated GFR ML/MIN Glucose (74-106) mg/dL Calcium (8.4-10.2) mg/dL Total Bilirubin (0.2-1.3) mg/dL AST (14-36) U/L ALT (0-35) U/L Alkaline Phosphatase (38-126) U/L Serum Total Protein (6.3-8.2) g/dL Albumin (3.5-5.0) g/dL Lipase (23-300) U/L Urine Color Dark Yellow A (Yellow) Urine Appearance Cloudy A (Clear) Urine pH 5.5 (4.6-8.0) Ur Specific [place] 1.025 (1.005-1.030) Urine Protein 30 (Negative) Urine Glucose (UA) Negative (Negative) mg/dL Urine Ketones Trace A (Negative) Urine Blood Negative (Negative) Urine Nitrite Negative (Negative) Urine Bilirubin Negative (Negative) Urine Urobilinogen 1.0 A (0.2) mg/dL Ur Leukocyte Esterase Trace A (Negative) U Hyaline Cast (Auto) NONE SEEN (0-2) /LPF Urine Microscopic RBC 3-5 (0-5) /HPF Urine Microscopic WBC 11-20 A (0-5) /HPF Ur Epithelial Cells Many A (None Seen) /HPF Calcium Oxalate Crystal 11-25 A (None Seen) /HPF Urine Bacteria Moderate A (None Seen) /HPF Urine Culture Reflexed YES (NO) Slides for Path Review - Progress Progress Note: 03/04/25 22:33 Patient has been ambulating in the ED without difficulty. She has a nonacute abdomen. There are noted to be calcium oxalate crystals in the urine so cannot rule out dehydration or possible kidney stones although no gross hematuria. Regardless, patient is doing well. She can be managed expectantly to have reexamination especially if pain worsens or changes. Due to her status radiographic imaging at this time is contraindicated including CAT scan. There is no MRI capability and I have a lower suspicion at this time that patient has an acute abdomen. She does not have any nausea or vomiting. She ambulates well without difficulty. I feel patient can be rechecked successfully by her FIRE PRE[employer]ION RESEARCH ENGINEER in the morning or return to the emergency department in 12 hours. The patient's condition was discussed with themselves and/or family members in great detail. Precautions are given and need to return or call 911 immediately for any changes or worsening are discussed. Instructions on patient's condition and noting that conditions can change or worsen and that diagnosis are presumptive and can evolve are discussed. All questions were answered. All concerns addressed at this time - Departure Departure Disposition: Home Clinical Impression: Abdominal pain in , Calcium oxalate crystals in urine Condition: Stable Critical Care Time: No Referrals: ERIN MINA NP [Primary Care Provider, [facility]] - Follow up/PCP as directed Instructions: Abdominal pain, Kidney stones in adults Additional Instructions: It is important that you closely follow your abdominal pain and flank pain. Drink plenty of fluids. You should be rechecked by your milk receiver in the morning or you may return to the emergency department for repeat examination. Because your status, you are not candidate for any advanced imaging such as CAT scan due to radiation exposure. There are calcium oxalate crystals in the urine which sometimes could suggest the possibility of a kidney stone although there is no gross blood in the urine that would confirm this higher suspicion. You may take Tylenol for pain. And again drink at least a glass of water per hour or more to hydrate yourself and try to eliminate any possible small stones in the kidney. If you began having severe worsening abdominal pain is important you return to the closest emergency department. You have been evaluated for an emergency medical condition. At this time, given the current history and events presented, the examination conducted and any possible testing you may have had, you have been given a presumptive diagnosis based on the current information is obtained. Your discharge diagnosis is presumptive and not necessarily definitive. Medical conditions present in various stages very often without all the symptoms or findings described in medical literature. Other symptoms, concerns or conditions may arise and your diagnoses may evolve or change and/or your condition could potentially worsen after the time of disposition or discharge. You have been given a presumptive diagnosis and your condition appears to be stable, but your medical issues can change or worsen. If there is worsening of your condition including difficulty breathing, swallowing, speaking, chest pain or pressure, intractable vomiting, worsening or changing mental status, numbness, tingling or weakness of your body or arms or legs, thoughts or plans of harming yourself or others, or any other concerns, call 911 and/or return immediately to the closest emergency department. It is important you follow-up with your doctor on the next business day. Call your doctor, or the referral provided if you do not have a doctor, when they open to schedule a follow-up appointment in the next 1 or latest 2 days. Please refer to the attached sheet. If you do not have primary care doctor, you can call the [facility] referral line at [phone]. Return immediately if your symptoms worsen or if you are unable to obtain further care. My team and I thank you for choosing the [facility] Emergency Department emergency healthcare needs. We wish you a speedy recovery. Very respectfully, Dr. Paola Alcocer M.D. [place] [employer] Board-certified Emergency Physician
[2025-03-04] MEDS ORDERED: ZOFRAN ODT 4 MG ONE (21:09)
[2025-03-04] MEDS ORDERED: TYLENOL EXTRA STRENGTH 500 MG ONE (21:09)
[2025-03-04] MEDS: TYLENOL EXTRA STRENGTH 500 MG PO STA (21:11)
[2025-03-04] MEDS: ZOFRAN ODT 4 MG PO ONE (21:12)
[2025-03-04 21:42] LABS: BASOPHIL % 0.7 % (0.1-1.2); Basophil (Absolute #) 0.05 x10^3/uL (0.01-0.08); Eosinophil (Absolute #) 0.10 x10^3/uL (0.04-0.36); Hematocrit 40.9 % (34.1-44.9); Hemoglobin 11.0 g/dL (11.2-15.7); IMMATURE GRAN # 0.01 x10^3u/L (0.001-0.031); IMMATURE GRAN % 0.1 % (0.001-0.429); Lymphocyte (Absolute #) 1.70 x10^3/uL (1.18-3.74); Mean Corpuscular Hemoglobin 20.4 pg (25.6-32.2); Mean Corpuscular Hgb Concent. 26.9 g/dL (32.2-35.5); Monocyte (Absolute #) 0.35 x10^3/uL (0.24-0.86); NUCLEATED RBC # 0.00 x10^3u/L (0.00-0.012); NUCLEATED RBC % 0.0 % (0.00-0.2); Platelet Count 186 x10^3/uL (182-369); Red Blood Count 5.38 x10^6/uL (3.93-5.22); White Blood Count 7.6 x10^3/uL (3.98-10.04)
[2025-03-04 21:45] LABS: Calcium 9.5 mg/dL (8.4-10.2); Carbon Dioxide 21.0 mmol/L (22-30); Creatinine 1 0.48 mg/dL (0.52-1.04); EST GLOMERULAR FILTRATION RATE 135.6 ML/MIN; Glucose 93.0 mg/dL (74-106); Potassium 4.4 mmol/L (3.5-5.1); SGOT/AST 41.0 U/L (14-36); SGPT/ALT 23.0 U/L (0-35); Total Protein 7.3 g/dL (6.3-8.2)
[2025-03-04 21:54] LABS: Glucose, Urine Negative (Negative); Protein,Urine Dip Trace (Negative); WBC 0-2 /HPF (0-5)
[2025-03-04 22:01] LABS: Slide Review 1 YES
[2025-03-04 22:38] VITALS: O2SAT 100
[2025-03-04 22:44] VITALS: BP 126/86; PULSE 70
== END 2025-03-04 22:47 | disposition home or self-care (01) ==
LOC: ED 20:38
DX: O26.891 Other specified pregnancy related conditions, first trimester (principal); O30.001 Twin pregnancy, unspecified number of placenta and unspecified number of amniotic sacs, first trimester; Z3A.12 12 weeks gestation of pregnancy; R10.9 Unspecified abdominal pain; R82.998 Other abnormal findings in urine; Z79.84 Long term (current) use of oral hypoglycemic drugs; Z79.899 Other long term (current) drug therapy